=== PATIENT | male | born 1950 | race Asian ===

== ENCOUNTER 2018-02-06 11:33 | Inpatient (IN) | payer OTHER ==
[~2018-02-06] VITALS: Ht 167.6 cm; Wt 75.3 kg
[2018-02-06] MEDS ORDERED: GLIPIZIDE-METF1 EAC2 PO (11:40)
[2018-02-06] MEDS ORDERED: OMEPRAZOLE40 M1 ORAL (11:40)
[2018-02-06] MEDS ORDERED: Sodium Chloride 500ML 500 ML IV ONE (11:50)
--- NOTE | 2018-02-06 12:01 | Emergency Room Report ---
History of Present Illness General Chief Complaint: General Complaint Source: Patient, Medical Record Present Illness HPI Patient presents with complaints of left leg weakness On further discussion patient reports that approximately 4:00 this morning he was having difficulty moving his toes He reports that at times the anterior part of the leg also feels numb However today was mainly his toes He also has been having more difficulty ambulating And bearing weight on that left leg in general Denies any chest pain or shortness of breath denies any loss of control of bowel or urination Allergies: Coded Allergies: No Known Allergies (Unverified , 02/06/18) Patient History Past Medical History: see triage record Pertinent Family History: none Reviewed Nursing Documentation: PMH: Agreed; PSxH: Agreed Nursing Documentation-PMH Hx Cardiac Problems: Yes Hx Hypertension: Yes Hx Diabetes: Yes Review of Systems All Other Systems: negative except mentioned in HPI Physical Exam Vital Signs Date Time Temp Pulse Resp B/P (MAP) Pulse Ox O2 Delivery O2 Flow Rate FiO2 02/06/18 11:18 98.0 66 16 141/85 98 Room Air 98.1 Sp02 EP Interpretation: reviewed, normal General Appearance: well appearing, no apparent distress Head: normocephalic, atraumatic Eyes: bilateral eye PERRL, bilateral eye EOMI ENT: hearing grossly normal, normal pharynx, TMs + canals normal, uvula midline Neck: full range of motion, supple, no meningismus, no bony tend Respiratory: lungs clear, normal breath sounds, no rhonchi, no respiratory distress, no retraction, no accessory muscle use Cardiovascular #1: normal peripheral pulses, regular rate, rhythm, no edema, no gallop, no JVD, no murmur Gastrointestinal: normal bowel sounds, non tender, soft, no mass, no organomegaly, non-distended, no guarding, no hernia, no pulsatile mass, no rebound Genitourinary: no CVA tenderness Musculoskeletal: other - Patient was able to lift the leg up on the left side and flex at the pelvic and knee area, sensory is intact patient has some difficulty extending the left foot along with the toes however is able to flex the toes, Neurologic: oriented x3, responsive, sensory intact Psychiatric: mood/affect normal Skin: normal color, no rash, warm/dry, palpation normal Lymphatic: normal inspection, no adenopathy Medical Decision Making Diagnostic Impression: Primary Impression: Elevated troponin Additional Impression: Weakness ER Course Patient is a fairly complex patient with multiple differential to consideration including but not limited to cardiac cardiopulmonary , intracranial and vascular emergencies Patient's blood work reveals mildly elevated troponin CT head and L-spine did not show any obvious acute pathology Patient will be admitted for further inpatient care Patient does not meet thrombolytic criteria Labs Test 02/08/18 07:30 02/08/18 14:45 Troponin I 0.101 ng/mL (0.000-0.056) 0.096 ng/mL (0.000-0.056) EKG Diagnostic Results Rate: normal Rhythm: NSR ST Segments: no acute changes Rhythm Strip Diag. Results EP Interpretation: yes Rate: 77 Rhythm: NSR, no PVC's, no ectopy Chest X-Ray Diagnostic Results Chest X-Ray Diagnostic Results : Chest X-Ray Ordered: Yes # of Views/Limited/Complete: 1 View Indication: Chest Pain EP Interpretation: Yes Interpretation: no consolidation, no effusion, no pneumothorax Impression: No acute disease Electronically Signed by: Timi Nieves DO CT/MRI/US Diagnostic Results CT/MRI/US Diagnostic Results : Impression CT L-spineIMPRESSION: No evidence of acute fracture or traumatic malalignment. Chronic-appearing bilateral pars defects at L5-S1. No associated spondylolisthesis. Overall mild degenerative change of the lumbar spine as above. CT head IMPRESSION: No evidence of acute intracranial hemorrhage, mass effect or cortical edema. MRI may be obtained for more sensitive evaluation as clinically indicated. Chronic appearing infarcts in the right thalamus and left cerebellar hemisphere. Atrophy and nonspecific periventricular hypoattenuation suggestive of chronic ischemic microvascular changes. Last Vital Signs Date Time Temp Pulse Resp B/P (MAP) Pulse Ox O2 Delivery O2 Flow Rate FiO2 02/06/18 11:18 98.0 66 16 141/85 98 Room Air 98.1 Status: improved Disposition: ADMITTED INPATIENT Condition: Serious Timi Nieves DO Feb 06, 2018 12:01
[2018-02-06 12:30] LABS: BASOPHILS % (AUTO) 0.5 % (0.0-2.0); EOSINOPHILS % (AUTO) 1.6 % (0.0-3.0); HEMATOCRIT 42.2 % (42.0-52.0); HEMOGLOBIN 15.5 G/DL (14.2-18.0); LYMPHOCYTES % (AUTO) 21.7 % (20.0-45.0); MEAN CORPUSCULAR VOLUME 91 FL (80-99); NEUTROPHILS % (AUTO) 68.3 % (45.0-75.0); PLATELET COUNT 185 K/UL (150-450); RED BLOOD COUNT 4.63 M/UL (4.70-6.10); RED CELL DISTRIBUTION WIDTH 11.6 % (11.6-14.8); WHITE BLOOD COUNT 7.1 K/UL (4.8-10.8)
--- NOTE | 2018-02-06 12:32 | Diagnostic Imaging Report ---
Indication: Chest pain Technique: XRAY Chest 1v Comparison: None Findings: Low lung volumes exaggerate heart size and vascular markings. There is bronchovascular crowding at the bases. There is no definite focal airspace consolidation, pleural effusion or pneumothorax. No acute osseous abnormality is seen. Impression: Limited exam with low lung volumes. No definite focal airspace consolidation, pleural effusion or pneumothorax. Question borderline cardiomegaly.
[2018-02-06 12:47] LABS: ANION GAP 11 mmol/L (5-15); BLOOD UREA NITROGEN 19 mg/dL (7-18); CALCIUM 8.9 MG/DL (8.5-10.1); CARBON DIOXIDE 23 MMOL/L (21-32); CHLORIDE 104 MMOL/L (98-107); CREATININE 0.8 MG/DL (0.55-1.30); POTASSIUM 3.9 MMOL/L (3.5-5.1); SODIUM 138 MMOL/L (136-145)
[2018-02-06 13:01] LABS: ALANINE AMINOTRANSFERASE 42 U/L (12-78); ALBUMIN 3.4 G/DL (3.4-5.0); ALKALINE PHOSPHATASE 58 U/L (46-116); ASPARTATE AMINO TRANSFERASE 25 U/L (15-37); BILIRUBIN,TOTAL 0.7 MG/DL (0.2-1.0); CKMB 1.3 NG/ML (0.0-3.6); CREATINE KINASE 63 U/L (26-308)
--- NOTE | 2018-02-06 13:16 | Diagnostic Imaging Report ---
Reason For Exam: WEAK Technique: Continuous helical CT scanning of the head was performed utilizing automated exposure control without intravenous contrast material. Axial and coronal reconstructions were obtained. Comparison: None CT dose: Total DLP 1333.51 mGycm; CTDI vol 70.38 mGy Findings: There is no acute intracranial hemorrhage, mass effect or cortical edema. There is a chronic lacunar infarct in the right thalamus. There is also a chronic appearing infarct in the left cerebellum. The ventricles, cisterns and sulci are prominent consistent with atrophy. Periventricular hypoattenuation is seen, a nonspecific finding most likely related to sequela of chronic microvascular ischemic change. There are atherosclerotic vascular calcifications. Visualized vascular structures are symmetric in density. Visualized mastoid air cells and paranasal sinuses are unremarkable. No focal lesions of the bony calvarium or soft tissues of the scalp are seen. IMPRESSION: No evidence of acute intracranial hemorrhage, mass effect or cortical edema. MRI may be obtained for more sensitive evaluation as clinically indicated. Chronic appearing infarcts in the right thalamus and left cerebellar hemisphere. Atrophy and nonspecific periventricular hypoattenuation suggestive of chronic ischemic microvascular changes. The CT scanner at [facility] is accredited by the [employer] and the scans are performed using protocols designed to limit radiation exposure to as low as reasonably achievable to attain images of sufficient resolution adequate for diagnostic evaluation.
--- NOTE | 2018-02-06 13:25 | Diagnostic Imaging Report ---
Reason For Exam: WEAK Technique: CT lumbar spine was performed utilizing automated exposure control without intravenous contrast material. Axial, sagittal and coronal images were generated. CT dose: Total DLP 502.72 mGycm; CTDI vol 15.73 mGy Comparison: None Findings: There is minimal dextroscoliosis of the mid lumbar spine. There are 5 nonrib-bearing lumbar-type vertebral bodies, assuming 12 paired ribs. There is no acute fracture. Vertebral body heights are within normal limits; there is no compression fracture. There are chronic bilateral pars defects at L5-S1. There is no associated spondylolisthesis. There is overall mild level degenerative change of the spine manifested by loss of disc height, anterior osteophyte formation and mild facet arthropathy. Findings are most pronounced at L5-S1, where there is vacuum disc phenomenon. There is no significant bony central canal stenosis or bony foraminal narrowing. There is mild disc disease with small multilevel disc bulges. No appreciable significant foraminal narrowing. Please note that the cord, disks and nerve roots are not well evaluated on CT. Evaluation of these structures is best performed on MRI, which can be obtained as clinically indicated. Visualized abdominal aorta and iliac arteries appear normal in caliber with atherosclerotic calcifications. IMPRESSION: No evidence of acute fracture or traumatic malalignment. Chronic-appearing bilateral pars defects at L5-S1. No associated spondylolisthesis. Overall mild degenerative change of the lumbar spine as above. The CT scanner at [facility] is accredited by the [employer] and the scans are performed using protocols designed to limit radiation exposure to as low as reasonably achievable to attain images of sufficient resolution adequate for diagnostic evaluation.
[2018-02-06] MEDS ORDERED: Nitroglycerin Subl 0.4mg tab SL PRN (14:30)
[2018-02-06] MEDS ORDERED: Enalaprilat 2.5mg/2ml Inj IV PRN (14:30)
[2018-02-06] MEDS ORDERED: Morphine Sulfate 4mg/ml Inj IVP PRN (14:30)
[2018-02-06] MEDS ORDERED: Miralax 17gm pkt ORAL PRN (14:30)
[2018-02-06] MEDS ORDERED: Albuterol/Ipratropium 3ml neb HHN PRN (14:30)
[2018-02-06] MEDS ORDERED: dilTIAZem HCl 25mg/5ml Inj IV PRN (14:30)
[2018-02-06] MEDS ORDERED: Ketorolac 30mg Inj IV PRN (14:30)
--- NOTE | 2018-02-06 15:18 | History and Physical ---
History of Present Illness General Date patient seen: Feb 06, 2018 Reason for Hospitalization: General Complaint Present Illness HPI 67 year old male with hx of DM, presented to ER with complaints of left leg weakness and difficulty moving his toes He also has been having more difficulty ambulating. Denies any chest pain or shortness of breath denies any loss of control of bowel or urination. Pt's troponin was positive. He is admitted to telemetry to rule out ACS. Allergies: Coded Allergies: No Known Allergies (Unverified , 02/06/18) Medication History Scheduled Glipizide/Metformin Hcl (Glipizide-Metformin 5-500 Mg), 1 EACH PO BID, (Reported ) Omeprazole (Omeprazole), 40 MG ORAL DAILY, (Reported) Patient History Healthcare decision maker Resuscitation status Advanced Directive on File Past Medical/Surgical History Past Medical/Surgical History: (1) Diabetes mellitus Review of Systems Neurological: Reports: focal weakness All Other Systems: negative except mentioned in HPI Physical Exam General Appearance: WD/WN Lines, tubes and drains: peripheral HEENT: normocephalic, atraumatic Neck: non-tender, normal alignment Respiratory/Chest: chest wall non-tender, lungs clear Breasts: no masses Cardiovascular/Chest: normal peripheral pulses Abdomen: normal bowel sounds Genitourinary/Rectal: normal genital exam Last 24 Hour Vital Signs Date Time Temp Pulse Resp B/P (MAP) Pulse Ox O2 Delivery O2 Flow Rate FiO2 02/06/18 11:18 98.0 66 16 141/85 98 Room Air 98.1 Laboratory Tests Test 02/06/18 00:10 White Blood Count 7.1 K/UL (4.8-10.8) Red Blood Count 4.63 M/UL (4.70-6.10) L Hemoglobin 15.5 G/DL (14.2-18.0) Hematocrit 42.2 % (42.0-52.0) Mean Corpuscular Volume 91 FL (80-99) Mean Corpuscular Hemoglobin 33.5 PG (27.0-31.0) H Mean Corpuscular Hemoglobin Concent 36.8 G/DL (32.0-36.0) H Red Cell Distribution Width 11.6 % (11.6-14.8) Platelet Count 185 K/UL (150-450) Mean Platelet Volume 6.8 FL (6.5-10.1) Neutrophils (%) (Auto) 68.3 % (45.0-75.0) Lymphocytes (%) (Auto) 21.7 % (20.0-45.0) Monocytes (%) (Auto) 8.0 % (1.0-10.0) Eosinophils (%) (Auto) 1.6 % (0.0-3.0) Basophils (%) (Auto) 0.5 % (0.0-2.0) Sodium Level 138 MMOL/L (136-145) Potassium Level 3.9 MMOL/L (3.5-5.1) Chloride Level 104 MMOL/L (98-107) Carbon Dioxide Level 23 MMOL/L (21-32) Anion Gap 11 mmol/L (5-15) Blood Urea Nitrogen 19 mg/dL (7-18) H Creatinine 0.8 MG/DL (0.55-1.30) Estimat Glomerular Filtration Rate > 60 mL/min (>60) Glucose Level 246 MG/DL (74-106) H Calcium Level 8.9 MG/DL (8.5-10.1) Total Bilirubin 0.7 MG/DL (0.2-1.0) Aspartate Amino Transf (AST/SGOT) 25 U/L (15-37) Alanine Aminotransferase (ALT/SGPT) 42 U/L (12-78) Alkaline Phosphatase 58 U/L (46-116) Total Creatine Kinase 63 U/L (26-308) Creatine Kinase MB 1.3 NG/ML (0.0-3.6) Creatine Kinase MB Relative Index 2.0 Troponin I 0.098 ng/mL (0.000-0.056) Total Protein 6.8 G/DL (6.4-8.2) Albumin 3.4 G/DL (3.4-5.0) Globulin 3.4 g/dL Albumin/Globulin Ratio 1.0 (1.0-2.7) Height (Feet): 5 Height (Inches): 6.00 Weight (Pounds): 166 Medications Current Medications Medications (Trade) Dose Ordered Sig/[place] Route PRN Reason Start Time Stop Time Status Last Admin Dose Admin Acetaminophen (Tylenol) 650 mg Q4H PRN ORAL FEVER 02/06/18 14:30 03/08/18 14:29 UNV Albuterol/ Ipratropium (Albuterol/ Ipratropium) 3 ml EVERY 4 HOURS PRN HHN Shortness of Breath 02/06/18 14:30 02/11/18 14:29 UNV Aspirin (ASA) 162 mg DAILY ORAL 02/07/18 09:00 03/09/18 08:59 UNV Dextrose (Dextrose 50%) STAT PRN IV Hypoglycemia 02/06/18 14:30 03/08/18 14:29 UNV Diltiazem HCl (Cardizem) 10 mg EVERY HOUR PRN IV heart rate more than 120, 02/06/18 14:30 03/08/18 14:29 UNV Enalaprilat (Vasotec) 2.5 mg EVERY 6 HOURS PRN IV sbp more than 160 02/06/18 14:30 03/08/18 14:29 UNV Heparin Sodium (Porcine) (Heparin 5000 units/ml) 5,000 units EVERY 8 HOURS SUBQ 02/06/18 22:00 03/08/18 21:59 UNV Insulin Aspart (NovoLOG) BEFORE MEALS AND HS SUBQ 02/06/18 16:30 03/08/18 16:29 UNV Ketorolac Tromethamine (Toradol 30mg) 30 mg Q6HR PRN IV moderate pain ( 4-6) 02/06/18 14:30 02/11/18 14:29 UNV Morphine Sulfate (Morphine Sulfate) 2 mg EVERY 4 HOURS PRN IVP severe Pain (Pain Scale 7-10) 02/06/18 14:30 02/13/18 14:29 UNV Nitroglycerin (Ntg) 0.4 mg Every 5 Minutes PRN SL Prn Chest Pain 02/06/18 14:30 03/08/18 14:29 UNV Ondansetron HCl (Zofran) 4 mg Q6H PRN IVP Nausea & Vomiting 02/06/18 14:30 03/08/18 14:29 UNV Pantoprazole (Protonix) 40 mg DAILY ORAL 02/07/18 09:00 03/09/18 08:59 UNV Polyethylene Glycol (Miralax) 17 gm DAILYPRN PRN ORAL Constipation 02/06/18 14:30 03/08/18 14:29 UNV Temazepam (Restoril) 15 mg HSPRN PRN ORAL Insomnia 02/06/18 14:30 02/13/18 14:29 UNV Assessment/Plan Problem List: (1) ACS (acute coronary syndrome) ICD Codes: I24.9 - Acute ischemic heart disease, unspecified SNOMED: 712002490 (2) Weakness ICD Codes: R53.1 - Weakness SNOMED: 08259262, 085190648, 346332369 (3) Elevated troponin ICD Codes: R74.8 - Abnormal levels of other serum enzymes SNOMED: 457509699, 531029871, 016805259 (4) Diabetes mellitus ICD Codes: E11.9 - Type 2 diabetes mellitus without complications SNOMED: 35331865 Assessment/Plan serial ekg, troponin, echo cardiology evaluation sliding scale, diabetic diet pt/ot MRI of brain, Neuro evaluation. Sean Loera MD Feb 06, 2018 15:18
[2018-02-06] MEDS: NovoLOG Insulin Flexpen SUBQ SCH ×2 (18:05→20:36)
[2018-02-06 18:13] VITALS: BP 137/76
--- NOTE | 2018-02-06 19:26 | Cardiology Progress Note ---
Assessment/Plan Assessment/Plan need neuro drummond statin ecotirn carotid his torp does not reach ami will repeat trop adn ekg adn echo stress test neg 05/2017 at his pmd office [id number] Objective Last 24 Hour Vital Signs Date Time Temp Pulse Resp B/P (MAP) Pulse Ox O2 Delivery O2 Flow Rate FiO2 02/06/18 18:15 98.0 16 137/76 98 Room Air 98.0 02/06/18 18:13 98.0 16 137/76 98 Room Air 98.0 02/06/18 17:41 76 02/06/18 17:01 98.0 02/06/18 16:31 98.0 02/06/18 11:18 98.0 66 16 141/85 98 Room Air 98.1 Laboratory Tests Test 02/06/18 00:10 White Blood Count 7.1 K/UL (4.8-10.8) Red Blood Count 4.63 M/UL (4.70-6.10) L Hemoglobin 15.5 G/DL (14.2-18.0) Hematocrit 42.2 % (42.0-52.0) Mean Corpuscular Volume 91 FL (80-99) Mean Corpuscular Hemoglobin 33.5 PG (27.0-31.0) H Mean Corpuscular Hemoglobin Concent 36.8 G/DL (32.0-36.0) H Red Cell Distribution Width 11.6 % (11.6-14.8) Platelet Count 185 K/UL (150-450) Mean Platelet Volume 6.8 FL (6.5-10.1) Neutrophils (%) (Auto) 68.3 % (45.0-75.0) Lymphocytes (%) (Auto) 21.7 % (20.0-45.0) Monocytes (%) (Auto) 8.0 % (1.0-10.0) Eosinophils (%) (Auto) 1.6 % (0.0-3.0) Basophils (%) (Auto) 0.5 % (0.0-2.0) Sodium Level 138 MMOL/L (136-145) Potassium Level 3.9 MMOL/L (3.5-5.1) Chloride Level 104 MMOL/L (98-107) Carbon Dioxide Level 23 MMOL/L (21-32) Anion Gap 11 mmol/L (5-15) Blood Urea Nitrogen 19 mg/dL (7-18) H Creatinine 0.8 MG/DL (0.55-1.30) Estimat Glomerular Filtration Rate > 60 mL/min (>60) Glucose Level 246 MG/DL (74-106) H Calcium Level 8.9 MG/DL (8.5-10.1) Total Bilirubin 0.7 MG/DL (0.2-1.0) Aspartate Amino Transf (AST/SGOT) 25 U/L (15-37) Alanine Aminotransferase (ALT/SGPT) 42 U/L (12-78) Alkaline Phosphatase 58 U/L (46-116) Total Creatine Kinase 63 U/L (26-308) Creatine Kinase MB 1.3 NG/ML (0.0-3.6) Creatine Kinase MB Relative Index 2.0 Troponin I 0.098 ng/mL (0.000-0.056) Total Protein 6.8 G/DL (6.4-8.2) Albumin 3.4 G/DL (3.4-5.0) Globulin 3.4 g/dL Albumin/Globulin Ratio 1.0 (1.0-2.7) ROSEMARIE AGUILAR Feb 06, 2018 19:26
[2018-02-06 20:00] VITALS: BP 137/81
[2018-02-06] MEDS: Atorvastatin 20mg tab ORAL SCH (20:34)
[2018-02-06] MEDS: Heparin 5000 units/ml inj SUBQ SCH (22:01)
[2018-02-07] VITALS: BP 114/66
--- NOTE | 2018-02-07 02:45 | Consultation ---
DATE OF CONSULTATION: 02/06/2018 CARDIOLOGY CONSULTATION CONSULTING PHYSICIAN: Sean Shoemaker M.D. REFERRING PHYSICIAN: Sean Loera M.D. REASON FOR CONSULTATION: Abnormal cardiac enzymes. HISTORY OF PRESENT ILLNESS: This is a middle-aged Occitan gentleman who speaks some Polish. Information was obtained from my discussion with the patient himself as well as discussions with the patient's daughter as well as review of the chart. He was noted to have some pain initially in his left leg. He went to sleep and then he woke up, he thought he was unable to move his left foot anymore and he called his daughter and told her that he has been having problems with moving his left leg or foot, not clear. He has had this episode previously and he massaged the foot and he apparently got it to work, at this time it did not work. He went to his primary care doctor and because of the recent CT scan that had shown some stroke, the patient's primary care physician directed him into the emergency room here at [facility] and has been admitted to the hospital. Part of the workup has indicated his cardiac enzymes were abnormal, therefore, this consultation requested. The patient absolutely denies any pain, pressure, tightness, heaviness, uses three pillows to sleep with. Does not have any shortness of breath on ambulation. No dizziness or lightheadedness usually. PAST MEDICAL HISTORY: Included some extensive notes that was referred by his physician. He recently has had some elevated PSA for which he has been treated with antibiotics and was given referral to Urology. He has had a nuclear stress test that was apparently normal in May 2007 with ejection fraction of 60%. Cardiac echo also showed concentric ventricular hypertrophy with mild diastolic dysfunction, mildly dilated ascending aorta with ejection fraction 60% to 65%. 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 MRCP was unremarkable. 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 He also had a CT scan, which showed two lacunar infarctions in the medial right thalamus and inferior left cerebellar hemisphere. A carotid ultrasound on 01/26/2018 with stenosis. He also has diabetes mellitus and diabetic polyneuropathy in bilateral hands, left worse than the right, gastroesophageal reflux disease, aortic ectasia, renal cyst, hearing loss, abdominal surgery in July 2017. He also had an endoscopy as well as MRCP. MEDICATIONS: At home include metformin, Farxiga and insulin, acyclovir, Flonase, glipizide, and omeprazole as needed. ALLERGIES: None. SOCIAL HISTORY: Sedentary. 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 He has smoked up to three years ago. He socially drinks alcoholic beverages. REVIEW OF SYSTEMS: GASTROINTESTINAL: He denies any nausea, vomiting, diarrhea, or constipation. GENITOURINARY: He denies problems urinating. PULMONARY: Denies any coughing or wheezing. CONSTITUTIONAL: No fevers or chills. NEUROLOGIC: As mentioned in the history of present illness. PHYSICAL EXAMINATION: GENERAL: Shows to be an elderly gentleman, in no respiratory distress. HEENT: Unremarkable. NECK: Supple. No jugular venous distention. CARDIAC: Regular rate and rhythm. No heaves, thrills, or gallops noted. ABDOMEN: Soft and nontender. Positive bowel sounds. EXTREMITIES: He is able to move his upper extremities up and down without any problems. The left lower extremity appears to be somewhat weaker trying to lift off the bed, but he is able to do that anyway, but it is weaker than it is on the right side. There is no clubbing, cyanosis, nor is there any edema. NEUROLOGIC: As mentioned. LABORATORY AND DIAGNOSTIC DATA: White count 7.1, hemoglobin 15.5, and platelet count of 185. Sodium is 138, potassium 3.9, chloride 104, bicarbonate 23, BUN of 19, creatinine 0.8, glucose of 246. Troponin 0.098. Total protein of 6.8 and albumin of 3.4. A chest x-ray was performed in the emergency room shows low lung volumes, limited examination. No definite airspace consolidation, pleural effusion, or pneumothorax. His CT scan of his head had shown no evidence of acute intracranial hemorrhage or mass effect; chronic appearing infarct in the right thalamus and left cerebellar. Atrophy was noted. Spinal CT had shown no evidence of acute fracture or alignment, chronic appearing bilateral L5-S1. No spondylolisthesis was noted. Telemetry shows sinus rhythm. He has had an electrocardiogram that was performed in the emergency room, shows normal sinus rhythm, leftward axis, really no significant ST-T wave abnormalities. His cardiac enzymes had shown troponin as mentioned of 0.098. ASSESSMENT AND PLAN: 1. Abnormal cardiac enzymes without signs and symptoms of coronary disease. 2. Left lower extremity weakness. 3. Diabetes mellitus. 4. History of hypertension. 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 6. Abnormal CT with a history of chronic cerebrovascular accidents on prior CT scan prior to admission. Dr. Loera, this patient was seen in cardiac consultation. The patient reportedly had a recent nuclear perfusion imaging approximately 8 months ago that was negative with normal ejection fraction. His cardiac enzyme abnormality of minimal degree is uncertain etiology. He has not had any chest pain. Since the level of his cardiac enzymes are below the threshold suggestive of acute myocardial infarction; therefore, I will just repeat the EKG in the morning and cardiac enzymes and an echocardiogram to make sure that there was no segmental wall motion abnormality. He has already had a negative stress test recently. He will need neurological workup and evaluation. He should be on statins in light of the fact that he has diabetes. I do not see statin as part of his regimen prior to admission and he should probably be on some aspirin as well. No contraindications have been noted. His A1c in October 2017 reported at 5.8 and in January 2018 was 11.7 suggestive of poor compliance with medications. The patient will be followed. Sean Shoemaker M.D. : [employer]oo JOB#: [id number] CC:
[2018-02-07 04:00] VITALS: BP 119/61
[2018-02-07] MEDS: Heparin 5000 units/ml inj SUBQ SCH ×3 (05:32→20:55)
[2018-02-07] MEDS: NovoLOG Insulin Flexpen SUBQ SCH ×4 (06:07→20:37)
[2018-02-07 08:00] VITALS: BP 121/70
[2018-02-07 08:56] LABS: BASOPHILS % (AUTO) 0.7 % (0.0-2.0); HEMATOCRIT 45.3 % (42.0-52.0); HEMOGLOBIN 16.5 G/DL (14.2-18.0); LYMPHOCYTES % (AUTO) 26.9 % (20.0-45.0); MEAN CORPUSCULAR VOLUME 91 FL (80-99); MONOCYTES % (AUTO) 8.1 % (1.0-10.0); NEUTROPHILS % (AUTO) 61.2 % (45.0-75.0); PLATELET COUNT 203 K/UL (150-450); RED BLOOD COUNT 4.97 M/UL (4.70-6.10); RED CELL DISTRIBUTION WIDTH 11.2 % (11.6-14.8)
[2018-02-07] MEDS: Aspirin Baby 81mg ORAL SCH (09:09)
[2018-02-07 09:38] LABS: CHOLESTEROL 169 MG/DL (< 200); HDL CHOLESTEROL 47 MG/DL (40-60); TRIGLYCERIDES 117 MG/DL (30-150)
--- NOTE | 2018-02-07 12:06 | Pulmonology Progress Note ---
Assessment/Plan Problems: (1) ACS (acute coronary syndrome) (2) Weakness (3) Elevated troponin (4) Diabetes mellitus (5) Hx of abdominal surgery Assessment/Plan cariology appreciated, very helpful note pt/ot MRI of brain Neuro evaluation pending sliding scale Subjective ROS Limited/Unobtainable: No Constitutional: Reports: no symptoms HEENT: Repors: no symptoms Respiratory: Reports: no symptoms Cardiovascular: Reports: no symptoms Allergies: Coded Allergies: No Known Allergies (Unverified , 02/06/18) Objective Last 24 Hour Vital Signs Date Time Temp Pulse Resp B/P (MAP) Pulse Ox O2 Delivery O2 Flow Rate FiO2 02/07/18 08:00 77 02/07/18 08:00 97.7 69 19 121/70 96 Room Air 97.7 02/07/18 04:00 57 02/07/18 04:00 97.7 57 19 119/61 93 Room Air 97.7 02/07/18 00:00 60 02/07/18 00:00 97.6 60 18 114/66 94 Room Air 97.6 02/06/18 20:00 97.9 72 20 137/81 96 Room Air 97.9 02/06/18 20:00 72 02/06/18 18:15 98.0 16 137/76 98 Room Air 98.0 02/06/18 18:13 98.0 16 137/76 98 Room Air 98.0 02/06/18 17:41 76 02/06/18 17:01 98.0 02/06/18 16:31 98.0 Intake and Output 02/06/18 02/07/18 19:00 07:00 Intake Total 0 ml Balance 0 ml Intake Oral 0 ml # Voids 2 General Appearance: WD/WN HEENT: normocephalic, atraumatic Respiratory/Chest: chest wall non-tender, lungs clear Cardiovascular: normal peripheral pulses, normal rate, regular rhythm Abdomen: normal bowel sounds, soft, non tender Genitourinary: normal external genitalia Extremities: no cyanosis Skin: no rash, no lesions 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 Lymphatic: no neck adenopathy Laboratory Tests 02/07/18 07:50: White Blood Count 6.0, Red Blood Count 4.97, Hemoglobin 16.5, Hematocrit 45.3, Mean Corpuscular Volume 91, Mean Corpuscular Hemoglobin 33.2H, Mean Corpuscular Hemoglobin Concent 36.5H, Red Cell Distribution Width 11.2L, Platelet Count 203 , Mean Platelet Volume 7.0, Neutrophils (%) (Auto) 61.2, Lymphocytes (%) (Auto) 26.9, Monocytes (%) (Auto) 8.1, Eosinophils (%) (Auto) 3.0, Basophils (%) (Auto ) 0.7, Prothrombin Time 10.1, Prothromb Time International Ratio 1.0, Activated Partial Thromboplast Time 27, Troponin I 0.103H, C-Reactive Protein, Quantitative < 0.4, Triglycerides Level 117, Cholesterol Level 169, LDL Cholesterol 111H, HDL Cholesterol 47, Cholesterol/HDL Ratio 3.6, Thyroid Stimulating Hormone (TSH) 1.069 Current Medications Medications (Trade) Dose Ordered Sig/Namrata Route PRN Reason Start Time Stop Time Status Last Admin Dose Admin Acetaminophen (Tylenol) 650 mg Q4H PRN ORAL FEVER (temp>100.5F) 02/06/18 14:30 03/08/18 14:29 Albuterol/ Ipratropium (Albuterol/ Ipratropium) 3 ml Q4H PRN HHN Shortness of Breath 02/06/18 14:30 02/11/18 14:29 Aspirin (ASA) 81 mg DAILY ORAL 02/07/18 09:00 03/09/18 08:59 02/07/18 09:09 Atorvastatin Calcium (Lipitor) 40 mg BEDTIME ORAL 02/06/18 21:00 03/08/18 20:59 02/06/18 20:34 Dextrose (Dextrose 50%) 25 ml STAT PRN IV Hypoglycemia 02/06/18 14:30 03/08/18 14:29 Dextrose (Dextrose 50%) 50 ml STAT PRN IV Hypoglycemia 02/06/18 15:30 03/08/18 15:29 Diltiazem HCl (Cardizem) 10 mg Q1H PRN IV heart rate more than 120, 02/06/18 14:30 03/08/18 14:29 Enalaprilat (Vasotec) 2.5 mg Q6H PRN IV sbp more than 160 02/06/18 14:30 03/08/18 14:29 Heparin Sodium (Porcine) (Heparin 5000 units/ml) 5,000 units EVERY 8 HOURS SUBQ 02/06/18 22:00 03/08/18 21:59 02/07/18 05:32 Insulin Aspart (NovoLOG) BEFORE MEALS AND HS SUBQ 02/06/18 17:30 03/08/18 17:29 02/07/18 11:46 Ketorolac Tromethamine (Toradol 30mg) 30 mg Q6H PRN IV moderate pain (4-6) 02/06/18 14:30 02/11/18 14:29 Morphine Sulfate (Morphine Sulfate) 2 mg Q4H PRN IVP severe Pain (Pain Scale 7-10) 02/06/18 14:30 02/13/18 14:29 02/06/18 16:31 Nitroglycerin (Ntg) 0.4 mg Q5M PRN SL Prn Chest Pain 02/06/18 14:30 03/08/18 14:29 Ondansetron HCl (Zofran) 4 mg Q6H PRN IVP Nausea & Vomiting 02/06/18 14:30 03/08/18 14:29 Pantoprazole (Protonix) 40 mg DAILY ORAL 02/07/18 09:00 03/09/18 08:59 02/07/18 09:09 Polyethylene Glycol (Miralax) 17 gm DAILYPRN PRN ORAL Constipation 02/06/18 14:30 03/08/18 14:29 Temazepam (Restoril) 15 mg HSPRN PRN ORAL Insomnia 02/06/18 14:30 02/13/18 14:29 Sean Loera MD February 07, 2018 12:06
[2018-02-07 12:11] VITALS: BP 122/73
--- NOTE | 2018-02-07 13:46 | Cardiology Progress Note ---
Assessment/Plan Assessment/Plan 1. Abnormal cardiac enzymes without signs and symptoms of coronary syndrome of ? sig . 2. Left lower extremity weakness. 3. Diabetes mellitus. 4. History of hypertension. 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 6. Abnormal CT with a history of chronic cerebrovascular accidents on prior CT scan prior to admission recent nuclear perfusion imaging approximately 8 months ago that was negative with normal ejection fraction. cardiac enzyme abnormality of minimal degree is uncertain etiology. the level of his cardiac enzymes are below the threshold suggestive of acute myocardial infarction echo reviewed wall motion is normal trop will be repeated ekg to day no st t wave abn he seem to be ok but still has weakness in his foot tele neg cxr noted neuro drummond on ecotrin and lipitor Subjective Cardiovascular: Denies: chest pain, irregular heart rate, lightheadedness, palpitations Respiratory: Denies: orthopnea Gastrointestinal/Abdominal: Denies: abdominal pain Genitourinary: Denies: burning Subjective still with foot weakness Objective Last 24 Hour Vital Signs Date Time Temp Pulse Resp B/P (MAP) Pulse Ox O2 Delivery O2 Flow Rate FiO2 02/07/18 12:11 97.8 63 19 122/73 96 Room Air 97.8 02/07/18 08:00 77 02/07/18 08:00 97.7 69 19 121/70 96 Room Air 97.7 02/07/18 04:00 57 02/07/18 04:00 97.7 57 19 119/61 93 Room Air 97.7 02/07/18 00:00 60 02/07/18 00:00 97.6 60 18 114/66 94 Room Air 97.6 02/06/18 20:00 97.9 72 20 137/81 96 Room Air 97.9 02/06/18 20:00 72 02/06/18 18:15 98.0 16 137/76 98 Room Air 98.0 02/06/18 18:13 98.0 16 137/76 98 Room Air 98.0 02/06/18 17:41 76 02/06/18 17:01 98.0 02/06/18 16:31 98.0 General Appearance: no apparent distress, alert Neck: supple Cardiovascular: normal rate, regular rhythm Respiratory/Chest: lungs clear Abdomen: normal bowel sounds, non tender, soft Extremities: no swelling Intake and Output 02/06/18 02/07/18 19:00 07:00 Intake Total 0 ml Balance 0 ml Intake Oral 0 ml # Voids 2 Laboratory Tests Test 02/07/18 07:50 White Blood Count 6.0 K/UL (4.8-10.8) Red Blood Count 4.97 M/UL (4.70-6.10) Hemoglobin 16.5 G/DL (14.2-18.0) Hematocrit 45.3 % (42.0-52.0) Mean Corpuscular Volume 91 FL (80-99) Mean Corpuscular Hemoglobin 33.2 PG (27.0-31.0) H Mean Corpuscular Hemoglobin Concent 36.5 G/DL (32.0-36.0) H Red Cell Distribution Width 11.2 % (11.6-14.8) L Platelet Count 203 K/UL (150-450) Mean Platelet Volume 7.0 FL (6.5-10.1) Neutrophils (%) (Auto) 61.2 % (45.0-75.0) Lymphocytes (%) (Auto) 26.9 % (20.0-45.0) Monocytes (%) (Auto) 8.1 % (1.0-10.0) Eosinophils (%) (Auto) 3.0 % (0.0-3.0) Basophils (%) (Auto) 0.7 % (0.0-2.0) Prothrombin Time 10.1 SEC (9.30-11.50) Prothromb Time International Ratio 1.0 (0.9-1.1) Activated Partial Thromboplast Time 27 SEC (23-33) Troponin I 0.103 ng/mL (0.000-0.056) C-Reactive Protein, Quantitative < 0.4 mg/dL (0.00-0.90) Triglycerides Level 117 MG/DL (30-150) Cholesterol Level 169 MG/DL (< 200) LDL Cholesterol 111 mg/dL (<100) H HDL Cholesterol 47 MG/DL (40-60) Cholesterol/HDL Ratio 3.6 (3.3-4.4) Thyroid Stimulating Hormone (TSH) 1.069 uiU/mL (0.358-3.740) ROSEMARIE AGUILAR February 07, 2018 13:46
--- NOTE | 2018-02-07 13:51 | Cardiology Report ---
APPROVED REPORT EXAM: Two-dimensional and M-mode echocardiogram with Doppler and color Doppler. INDICATION Congestive Heart Failure M-Mode DIMENSIONS IVSd1.6 (0.7-1.1cm)Left Atrium (MM)4.0 (1.6-4.0cm) LVDd4.4 (3.5-5.6cm)Aortic Root3.5 (2.0-3.7cm) PWd1.7 (0.7-1.1cm)Aortic Cusp Exc.1.9 (1.5-2.0cm) IVSs1.7 cm LVDs3.0 (2.5-4.0cm) PWs2.0 cm Normal left ventricular chamber size, systolic function and wall motion . Left ventricular ejection fraction estimated to be 55- 60%. Mild left ventricular hypertrophy by 2-D. No evidence of pericardial effusion. All other cardiac chamber sizes are within normal limits. Focal aortic valve sclerosis with adequate cusp excursion. Mildly Thickened mitral valve leaflets with normal excursion. Mildly Mitral annulus and aortic root calcification. Normal pulmonic valve structure. Normal tricuspid valve structure. IVC at normal size with physiologic collapse. A color flow and spectral Doppler study was performed and revealed: Mild aortic regurgitation. Mild mitral regurgitation. Mitral diastolic velocities suggest reduced left ventricular relaxation c/w mild LV diastolic dysfunction (Grade I ) Mild tricuspid regurgitation. Tricuspid systolic velocities suggests peak right ventricular systolic pressure of 29mmHg.
--- NOTE | 2018-02-07 14:50 | Diagnostic Imaging Report ---
Indication: 67-year-old male with altered mental status and left-sided weakness Technique: The head was imaged in a 1.5 Lauren magnet. Sequences obtained include sagittal and axial T1 FLAIR, axial T2 fast spin echo with fat saturation, axial T2 FLAIR, diffusion and ADC map. Comparison: None There is a small focus of diffusion restriction demonstrated within a gyrus just right of midline near the vertex of the skull in the frontal lobe. Findings consistent with acute CVA. No associated edema or mass effect demonstrated. There is no midline shift. There is no evidence of hemorrhage. No magnetic susceptibility artifact demonstrated. There is generalized mild prominence of the basal cisterns, ventricles and cerebral sulci as well as cerebellar fissures spin with atrophy. Tiny cystic focus noted within the left cerebellum and right thalamus consistent with old lacunar infarcts. Mild periventricular T2 hyperintense signal noted consistent chronic small vessel disease. Corpus callosum, sella, osseous bone marrow signal appear normal. IMPRESSION: Acute CVA involving the high right frontal lobe near the vertex. Infarct a small. No associated edema or mass effect or hemorrhage. Generalized atrophy of the brain and evidence of chronic small vessel ischemia. Old lacunar infarcts in the left cerebellum and right thalamus. Critical value communication. Findings were discussed via telephone with Drs. Loera @2: 40pm, 02/07/2018
[2018-02-07 16:02] VITALS: BP 131/84
--- NOTE | 2018-02-07 16:55 | Cardiology Report ---
APPROVED REPORT EKG Measurement Heart [id number] CT [id number] Normal sinus rhythm with sinus arrhythmia Left axis deviation Abnormal ECG
--- NOTE | 2018-02-07 19:37 | Consultation ---
Consult Note Consult Note NEUROLOGY CONSULTATION: Full note dictated #[id number] 67 y/o, RH, KM with PH of HTN, DM, GERD, leg cramps and prior CVD. He was hospitalized on 02/06/2018 for the sudden onset of left LE weakness. ON EXAM: Problems with memory. HCF G 5-/5 in left FE G 4+/5 in left IP G 2/5 in left ankle DF and TE. Brisker DTRs on left Left paretic gait. IMPRESSION: High right frontal stroke - acute. Old right thalamic and left cerebellar strokes. Hypertensive/diabetic dyslipidemic CVD. REC: PT/OT Consider changing antiplatelet agent to Plavix. BP/BS/Lipid control. Kaden Ratliff M.D., M.S.P.Payam. KADEN RATLIFF February 07, 2018 19:37
[2018-02-07 20:00] VITALS: BP 125/71
--- NOTE | 2018-02-07 20:30 | Consultation ---
DATE OF CONSULTATION: 02/07/2018 NEUROLOGY CONSULTATION CONSULTING PHYSICIAN: Abran Ratliff M.D. REFERRING PHYSICIAN: Sean Loera M.D. HISTORY: Mr. Noe Peterson is a 67-year-old, right-handed, [place] gentleman, who does have a past history of hypertension, diabetes mellitus, gastroesophageal reflux disease, leg cramps, and cerebrovascular disease seen on a prior CT scan. He was functioning relatively well until the early hours of 02/06/2018, when on awakening, he noticed that his left lower extremity was not moving in a normal fashion. As a result of that, he was brought into the [facility] Emergency Room and has since been admitted. This consultation was requested to evaluate and manage the patient's cerebrovascular disease. At this point in time, the patient continues to have weakness in his left leg. He denies any weakness in his left upper extremity. He also denies any problems with memory, speech, language, or other neurological symptoms. He denies any prior similar symptoms. He, however, is quite worried by leg cramps, which have been bothering him for quite some time. PAST MEDICAL HISTORY: Significant for hypertension, diabetes mellitus, gastroesophageal reflux disease, leg cramps, and prior cerebral vascular disease as evidenced by abnormal CT scan, the exact details of which are unknown to us. FAMILY HISTORY: Significant for high blood pressure and diabetes in other family members. PERSONAL HISTORY: Home: He lives alone. 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 Habits: He denies the use of illicit drugs. He does have 1-2 beers in a week. He used to smoke in the past, but stopped smoking approximately three years ago. PRESENT MEDICATIONS: Include aspirin 81 mg daily, pantoprazole, heparin for DVT prophylaxis, Lipitor, insulin, DuoNeb inhaler, nitroglycerin p.r.n., Tylenol p.r.n., Toradol p.r.n., morphine p.r.n., MiraLAX p.r.n., Zofran p.r.n., temazepam p.r.n., Norvasc, Vasotec p.r.n., and Cardizem p.r.n. PHYSICAL EXAMINATION: GENERAL: He is a well-developed and well-nourished, pleasant, [place] gentleman, lying in bed, in no acute distress. VITAL SIGNS: Pulse 65 per minute, blood pressure 131/84 mmHg, respirations 18 per minute, and temperature 97.8 degrees Fahrenheit. HEAD: Normocephalic and atraumatic. EENT: Examination benign. NECK: No neck rigidity was observed. NEUROLOGIC EXAMINATION: MENTAL STATUS EXAMINATION: He was awake and alert. He was oriented to person, place, and time. He was able to recall 3/3 words immediately after 1 minute and after 3 minutes. He was unable to tell me who the present President was, but was able to remember that Obama was president prior to that. With hints, he was also able to remember Rudd Aashish, but could not remember presidents prior to that. His mathematical skills were minimally impaired. His visuospatial function was preserved. SPEECH: He had no dysarthria. LANGUAGE: He had no aphasia in Wol[place] as per the [place] hydroelectric machinery mechanic helper. CRANIAL NERVE EXAMINATION: II: The visual coleman were intact to confrontation testing. III, IV & : The external ocular movements were full and the pupils 3 mm in diameter, equal, round, regular, and reactive to light. V: He had normal facial sensations, and the temporales, masseters, and pterygoids functioned normally. VII: He had normal facial expressions and no facial asymmetry. VIII: He was able to hear well bilaterally and he had no nystagmus. IX: The palate moved symmetrically on phonation. X: He had no hoarseness of voice. XI: The sternocleidomastoids and trapezii functioned normally. XII: The tongue was in the midline without any fasciculations or atrophy. MOTOR SYSTEM: The tone was normal in all four extremities. Examination of muscle mass revealed no focal wasting. Examination of power revealed G 5/5 power except for G 5-/5 power in the left finger extensors, G 4+/5 power in the left iliopsoas, and G 2/5 power in the left ankle dorsiflexors and toe extensors. SENSORY EXAMINATION: He had intact sensations to pinprick, light touch, and graphesthesia. COORDINATION: He performed well on [id number] testing. He was unable to perform [id number] testing. REFLEXES: 1+ on the right and 3+ on the left at the biceps, triceps, brachioradialis, and knees and 0 on the right and left at the ankles. The plantar response was flexor on the right and extensor on the left. STANCE: He stood up with support. GAIT: He walks with support with a left hemiparetic gait. DIAGNOSTIC IMPRESSION: 1. Mr. Noe Peterson is a 67-year-old, right-handed, [place] gentleman, who does have a past history of hypertension, diabetes mellitus, gastroesophageal reflux disease, leg cramps, and prior cerebrovascular disease on imaging, who on 02/06/2018, had a sudden onset of left lower extremity weakness. 2. On neurological examination at this time, he does have mild problems with memory and higher cognitive function. He also has a left hemiparesis involving the lower extremity significantly more than the upper extremity. In addition, the deep tendon reflexes are brisker on the left side than on the right and he does have an extensor plantar response on the left side. He also walks with a left hemiparetic gait. 3. Laboratory data obtained thus far have revealed a relatively normal CBC. Chemistry panel with blood sugar of 246 and a BUN elevated to 19. Lipid panel with an LDL of 111 and HDL of 47. Normal TSH, and normal PT and INR. 4. The MRI scan of the brain reveals a high right frontal acute infarct and in addition, old right thalamic and left cerebellar infarcts. 5. The patient's history, neurological examination, and imaging studies are most compatible with an acute high right frontal infarct causing a left hemiparesis involving the lower extremity significantly more than the upper extremity. His imaging studies also revealed old cerebrovascular disease indicative of recurrent strokes. The most likely etiology for his strokes is hypertensive, diabetic, dyslipidemic, cerebrovascular disease. RECOMMENDATIONS: 1. Agree with management thus far. 2. The patient will benefit significantly from a course of physical and occupational therapy. 3. It may be worth changing the patient's antiplatelet agent from aspirin to Plavix to give him added stroke prevention benefits. 4. The patient's blood pressure should be well controlled at all times that is equal to or less than 120/80 mmHg. 5. His blood sugar should be kept under good control with his hemoglobin A1c goal being at 6%. 6. His lipids should also be well controlled with an LDL goal of <70. 7. The patient will be observed closely and depending on how he fares over the next day or so, further recommendations will be given. Thank you for entrusting me with the care of Mr. Peterson. I shall follow him with you. Abran Ratliff M.D., M.S.P.H. DR: HEATHER JOB#: [id number] MARY JANE
[2018-02-07] MEDS: Atorvastatin 20mg tab ORAL SCH (20:37)
[2018-02-07] MEDS ORDERED: NovoLOG Insulin Flexpen SUBQ SCH (21:00)
--- NOTE | 2018-02-07 22:12 | Consultation ---
History of Present Illness General Date patient seen: February 07, 2018 Chief Complaint: General Complaint Present Illness HPI 67-year-old [place] gentleman, who does have a past history of hypertension, diabetes mellitus, gastroesophageal reflux disease, leg cramps, and prior cerebrovascular disease seen on a prior CT scan. the pt pw inability to move his lower ext. the pt is anxious however no si/hi Allergies: Coded Allergies: No Known Allergies (Unverified , 02/06/18) Medication History Scheduled Glipizide/Metformin Hcl (Glipizide-Metformin 5-500 Mg), 1 EACH PO BID, (Reported ) Omeprazole (Omeprazole), 40 MG ORAL DAILY, (Reported) Patient History Limited by: medical condition History Provided By: Patient, Medical Record, PMD Healthcare decision maker Resuscitation status Full Code Advanced Directive on File Past Medical/Surgical History Past Medical/Surgical History: (1) Weakness (2) Elevated troponin (3) Diabetes mellitus (4) ACS (acute coronary syndrome) Review of Systems Psychiatric: Reports: prior hx, anxiety, emotional problems Physical Exam General Appearance: WD/WN, no apparent distress, alert Neurologic: oriented x 3, responsive, depressed affect Last 24 Hour Vital Signs Date Time Temp Pulse Resp B/P (MAP) Pulse Ox O2 Delivery O2 Flow Rate FiO2 02/07/18 20:00 63 02/07/18 20:00 98.0 60 20 125/71 97 Room Air 98.0 02/07/18 16:02 97.8 65 18 131/84 96 Room Air 97.8 02/07/18 16:00 61 02/07/18 12:11 97.8 63 19 122/73 96 Room Air 97.8 02/07/18 12:00 61 02/07/18 08:00 77 02/07/18 08:00 97.7 69 19 121/70 96 Room Air 97.7 02/07/18 04:00 57 02/07/18 04:00 97.7 57 19 119/61 93 Room Air 97.7 02/07/18 00:00 60 02/07/18 00:00 97.6 60 18 114/66 94 Room Air 97.6 Intake and Output 02/06/18 02/07/18 19:00 07:00 Intake Total 0 ml Balance 0 ml Intake Oral 0 ml # Voids 2 Laboratory Tests Test 02/07/18 07:50 02/07/18 16:10 White Blood Count 6.0 K/UL (4.8-10.8) Red Blood Count 4.97 M/UL (4.70-6.10) Hemoglobin 16.5 G/DL (14.2-18.0) Hematocrit 45.3 % (42.0-52.0) Mean Corpuscular Volume 91 FL (80-99) Mean Corpuscular Hemoglobin 33.2 PG (27.0-31.0) H Mean Corpuscular Hemoglobin Concent 36.5 G/DL (32.0-36.0) H Red Cell Distribution Width 11.2 % (11.6-14.8) L Platelet Count 203 K/UL (150-450) Mean Platelet Volume 7.0 FL (6.5-10.1) Neutrophils (%) (Auto) 61.2 % (45.0-75.0) Lymphocytes (%) (Auto) 26.9 % (20.0-45.0) Monocytes (%) (Auto) 8.1 % (1.0-10.0) Eosinophils (%) (Auto) 3.0 % (0.0-3.0) Basophils (%) (Auto) 0.7 % (0.0-2.0) Prothrombin Time 10.1 SEC (9.30-11.50) Prothromb Time International Ratio 1.0 (0.9-1.1) Activated Partial Thromboplast Time 27 SEC (23-33) Troponin I 0.103 ng/mL (0.000-0.056) 0.093 ng/mL (0.000-0.056) C-Reactive Protein, Quantitative < 0.4 mg/dL (0.00-0.90) Triglycerides Level 117 MG/DL (30-150) Cholesterol Level 169 MG/DL (< 200) LDL Cholesterol 111 mg/dL (<100) H HDL Cholesterol 47 MG/DL (40-60) Cholesterol/HDL Ratio 3.6 (3.3-4.4) Thyroid Stimulating Hormone (TSH) 1.069 uiU/mL (0.358-3.740) Erythrocyte Sedimentation Rate 3 MM/HR (0-20) Hemoglobin A1c 10.3 % (4.3-6.0) H Vitamin B12 Level 326 PG/ML (193-986) Vitamin D 25-Hydroxy Pending 25-Hydroxy Vitamin D2 Pending 25-Hydroxy Vitamin D3 Pending Folate 10.7 NG/ML (8.6-58.9) Rapid Plasma Reagin Pending Height (Feet): 5 Height (Inches): 6.00 Weight (Pounds): 166 Medications Current Medications Medications (Trade) Dose Ordered Sig/Namrata Route PRN Reason Start Time Stop Time Status Last Admin Dose Admin Acetaminophen (Tylenol) 650 mg Q4H PRN ORAL FEVER (temp>100.5F) 02/06/18 14:30 03/08/18 14:29 Albuterol/ Ipratropium (Albuterol/ Ipratropium) 3 ml Q4H PRN HHN Shortness of Breath 02/06/18 14:30 02/11/18 14:29 Aspirin (ASA) 81 mg DAILY ORAL 02/07/18 09:00 03/09/18 08:59 02/07/18 09:09 Atorvastatin Calcium (Lipitor) 40 mg BEDTIME ORAL 02/06/18 21:00 03/08/18 20:59 02/07/18 20:37 Clopidogrel Bisulfate (Plavix) 75 mg DAILY ORAL 02/07/18 20:20 03/09/18 20:19 02/07/18 20:54 Dextrose (Dextrose 50%) 25 ml STAT PRN IV Hypoglycemia 02/06/18 14:30 03/08/18 14:29 Dextrose (Dextrose 50%) 50 ml STAT PRN IV Hypoglycemia 02/06/18 15:30 03/08/18 15:29 Diltiazem HCl (Cardizem) 10 mg Q1H PRN IV heart rate more than 120, 02/06/18 14:30 03/08/18 14:29 Enalaprilat (Vasotec) 2.5 mg Q6H PRN IV sbp more than 160 02/06/18 14:30 03/08/18 14:29 Heparin Sodium (Porcine) (Heparin 5000 units/ml) 5,000 units EVERY 8 HOURS SUBQ 02/06/18 22:00 03/08/18 21:59 02/07/18 20:55 Insulin Aspart (NovoLOG) BEFORE MEALS AND HS SUBQ 02/06/18 17:30 03/08/18 17:29 02/07/18 20:37 Ketorolac Tromethamine (Toradol 30mg) 30 mg Q6H PRN IV moderate pain (4-6) 02/06/18 14:30 02/11/18 14:29 Morphine Sulfate (Morphine Sulfate) 2 mg Q4H PRN IVP severe Pain (Pain Scale 7-10) 02/06/18 14:30 02/13/18 14:29 02/06/18 16:31 Nitroglycerin (Ntg) 0.4 mg Q5M PRN SL Prn Chest Pain 02/06/18 14:30 03/08/18 14:29 Ondansetron HCl (Zofran) 4 mg Q6H PRN IVP Nausea & Vomiting 02/06/18 14:30 03/08/18 14:29 Pantoprazole (Protonix) 40 mg DAILY ORAL 02/07/18 09:00 03/09/18 08:59 02/07/18 09:09 Polyethylene Glycol (Miralax) 17 gm DAILYPRN PRN ORAL Constipation 02/06/18 14:30 03/08/18 14:29 Temazepam (Restoril) 15 mg HSPRN PRN ORAL Insomnia 02/06/18 14:30 02/13/18 14:29 Assessment/Plan Status: stable, progressing Assessment/Plan Anxiety d/o -ativan prn -provided gallito/Luis E Kelly M.D. February 07, 2018 22:12
[2018-02-08] VITALS: BP 128/73
[2018-02-08 04:00] VITALS: BP 131/80
[2018-02-08] MEDS: Heparin 5000 units/ml inj SUBQ SCH ×3 (06:01→21:11)
[2018-02-08] MEDS: NovoLOG Insulin Flexpen SUBQ SCH ×4 (06:02→21:07)
[2018-02-08 08:13] VITALS: BP 121/69
[2018-02-08] MEDS: Aspirin Baby 81mg ORAL SCH (08:22)
[2018-02-08] MEDS: metFORMIN 500mg tab ORAL SCH ×2 (11:51→17:05)
[2018-02-08 12:00] VITALS: BP 114/67
--- NOTE | 2018-02-08 12:00 | Consultation ---
DATE OF CONSULTATION: 02/08/2018 ENDOCRINOLOGY CONSULTATION CONSULTING PHYSICIAN: Fredi Coffey M.D. REFERRING PHYSICIAN: Sean Loera M.D. REASON FOR CONSULTATION: Diabetes management. HISTORY OF PRESENT ILLNESS: The patient is a 67-year-old male with past medical history of diabetes, hypertension, and prior CVA who was admitted to the [facility] where he presented with left lower extremity weakness. This started around 02/06/2018. His hemoglobin A1c is 10.3. As an outpatient, his diabetes is managed by the glipizide and metformin regimen and he is not usually checking glucose values as an outpatient. PAST MEDICAL HISTORY: 1. Hypertension. 2. Diabetes. 3. GERD. 4. Leg cramps. 5. Prior CVA. MEDICATIONS: As an outpatient, glipizide and metformin for diabetes. For the rest, refer to medication reconciliation form. For his current medications, we have to refer with [facility]. I reviewed and reconciled. SOCIAL HISTORY: The patient lives alone. He used to smoke, quit 3 years ago. Drinks 2 beers a week. FAMILY HISTORY: Blood pressure and diabetes in other family members. PHYSICAL EXAMINATION: GENERAL: The patient is awake. VITAL SIGNS: Blood pressure is 130/80, pulse of 80, temperature of 98 degrees, respiratory rate of 18. HEENT: Pupils are equal and reactive to light and accommodation. Sclerae anicteric NECK: No JVD. No thyromegaly. LUNGS: Clear. HEART: Regular rate and rhythm. ABDOMEN: Positive bowel sounds. Soft. EXTREMITIES: No clubbing, cyanosis, or edema. LABORATORY VALUES: Sodium 138, potassium 3.9, chloride 104, bicarbonate 23, BUN 19, creatinine 0.9, glucose 246. A1c of 10.3. TSH normal 1.0. DIAGNOSES: 1. Left lower extremity weakness 2. History of prior cerebrovascular accident. 3. Diabetes, out of control. A1c of 10.3 as an outpatient. 4. Hypertension. PLAN: 1. Start metformin 500 mg t.i.d. 2. Start Starlix 120 mg before meals t.i.d. 3. NovoLog sliding scale before meals and at bedtime has been ordered. 4. Further adjustment of diabetes regimen according to the blood glucose values. Thank you, Dr. Loera, for the courtesy of this consultation. Fredi Coffey M.D. DR: Asad JOB#: [id number] CC: MARY JANE
--- NOTE | 2018-02-08 12:05 | Pulmonology Progress Note ---
Assessment/Plan Problems: (1) ACS (acute coronary syndrome) (2) Weakness (3) Elevated troponin (4) Diabetes mellitus (5) Hx of abdominal surgery (6) Acute CVA (cerebrovascular accident) Assessment/Plan cariology appreciated, very helpful note pt/ot MRI of brain reviewed, Neuro evaluation appreciated sliding scale Subjective ROS Limited/Unobtainable: No Constitutional: Reports: no symptoms HEENT: Repors: no symptoms Respiratory: Reports: no symptoms Allergies: Coded Allergies: No Known Allergies (Unverified , 02/06/18) Objective Last 24 Hour Vital Signs Date Time Temp Pulse Resp B/P (MAP) Pulse Ox O2 Delivery O2 Flow Rate FiO2 02/08/18 08:13 97.0 63 20 121/69 96 Room Air 97.0 02/08/18 08:00 68 02/08/18 04:00 98.0 66 18 131/80 97 Room Air 98.0 02/08/18 04:00 63 02/08/18 00:00 58 02/08/18 00:00 97.6 62 19 128/73 96 Room Air 97.6 02/07/18 20:00 63 02/07/18 20:00 98.0 60 20 125/71 97 Room Air 98.0 02/07/18 16:02 97.8 65 18 131/84 96 Room Air 97.8 02/07/18 16:00 61 02/07/18 12:11 97.8 63 19 122/73 96 Room Air 97.8 Intake and Output 02/07/18 02/08/18 19:00 07:00 Intake Total 750 ml Balance 750 ml Intake Oral 750 ml # Voids 3 3 General Appearance: WD/WN HEENT: normocephalic, atraumatic Respiratory/Chest: chest wall non-tender, lungs clear Cardiovascular: normal peripheral pulses, normal rate Abdomen: normal bowel sounds, soft, non tender Genitourinary: normal external genitalia Extremities: no cyanosis Skin: no rash, no lesions Neurologic/Psychiatric: 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 grossly normal Lymphatic: no neck adenopathy Laboratory Tests 02/07/18 16:10: Erythrocyte Sedimentation Rate 3, Hemoglobin A1c 10.3H, Troponin I 0.093H, Vitamin B12 Level 326, Vitamin D 25-Hydroxy [Pending], 25-Hydroxy Vitamin D2 [ Pending], 25-Hydroxy Vitamin D3 [Pending], Folate 10.7, Rapid Plasma Reagin Non reactive 02/08/18 07:30: Troponin I 0.101H Current Medications Medications (Trade) Dose Ordered Sig/Namrata Route PRN Reason Start Time Stop Time Status Last Admin Dose Admin Acetaminophen (Tylenol) 650 mg Q4H PRN ORAL FEVER (temp>100.5F) 02/06/18 14:30 03/08/18 14:29 Albuterol/ Ipratropium (Albuterol/ Ipratropium) 3 ml Q4H PRN HHN Shortness of Breath 02/06/18 14:30 02/11/18 14:29 Aspirin (ASA) 81 mg DAILY ORAL 02/07/18 09:00 03/09/18 08:59 02/08/18 08:22 Atorvastatin Calcium (Lipitor) 40 mg BEDTIME ORAL 02/06/18 21:00 03/08/18 20:59 02/07/18 20:37 Clopidogrel Bisulfate (Plavix) 75 mg DAILY ORAL 02/07/18 20:20 03/09/18 20:19 02/08/18 08:22 Dextrose (Dextrose 50%) 25 ml STAT PRN IV Hypoglycemia 02/06/18 14:30 03/08/18 14:29 Dextrose (Dextrose 50%) 50 ml STAT PRN IV Hypoglycemia 02/06/18 15:30 03/08/18 15:29 Diltiazem HCl (Cardizem) 10 mg Q1H PRN IV heart rate more than 120, 02/06/18 14:30 03/08/18 14:29 Enalaprilat (Vasotec) 2.5 mg Q6H PRN IV sbp more than 160 02/06/18 14:30 03/08/18 14:29 Heparin Sodium (Porcine) (Heparin 5000 units/ml) 5,000 units EVERY 8 HOURS SUBQ 02/06/18 22:00 03/08/18 21:59 02/08/18 06:01 Insulin Aspart (NovoLOG) BEFORE MEALS AND HS SUBQ 02/06/18 17:30 03/08/18 17:29 02/08/18 11:53 Ketorolac Tromethamine (Toradol 30mg) 30 mg Q6H PRN IV moderate pain (4-6) 02/06/18 14:30 02/11/18 14:29 Metformin HCl (Glucophage) 500 mg TIAC ORAL 02/08/18 11:30 03/10/18 11:29 02/08/18 11:51 Morphine Sulfate (Morphine Sulfate) 2 mg Q4H PRN IVP severe Pain (Pain Scale 7-10) 02/06/18 14:30 02/13/18 14:29 02/06/18 16:31 Nateglinide (Starlix) 120 mg TIAC ORAL 02/08/18 11:30 03/10/18 11:29 02/08/18 11:51 Nitroglycerin (Ntg) 0.4 mg Q5M PRN SL Prn Chest Pain 02/06/18 14:30 03/08/18 14:29 Ondansetron HCl (Zofran) 4 mg Q6H PRN IVP Nausea & Vomiting 02/06/18 14:30 03/08/18 14:29 Pantoprazole (Protonix) 40 mg DAILY ORAL 02/07/18 09:00 03/09/18 08:59 02/08/18 08:22 Polyethylene Glycol (Miralax) 17 gm DAILYPRN PRN ORAL Constipation 02/06/18 14:30 03/08/18 14:29 Temazepam (Restoril) 15 mg HSPRN PRN ORAL Insomnia 02/06/18 14:30 02/13/18 14:29 Sean Loera MD February 08, 2018 12:05
--- NOTE | 2018-02-08 12:29 | General Progress Note ---
Subjective Date patient seen: February 08, 2018 Neurologic/Psychiatric: Reports: anxiety, emotional problems Allergies: Coded Allergies: No Known Allergies (Unverified , 02/06/18) Subjective the pt is doing better today Objective Last 24 Hour Vital Signs Date Time Temp Pulse Resp B/P (MAP) Pulse Ox O2 Delivery O2 Flow Rate FiO2 02/08/18 08:13 97.0 63 20 121/69 96 Room Air 97.0 02/08/18 08:00 68 02/08/18 04:00 98.0 66 18 131/80 97 Room Air 98.0 02/08/18 04:00 63 02/08/18 00:00 58 02/08/18 00:00 97.6 62 19 128/73 96 Room Air 97.6 02/07/18 20:00 63 02/07/18 20:00 98.0 60 20 125/71 97 Room Air 98.0 02/07/18 16:02 97.8 65 18 131/84 96 Room Air 97.8 02/07/18 16:00 61 Intake and Output 02/07/18 02/08/18 19:00 07:00 Intake Total 750 ml Balance 750 ml Intake Oral 750 ml # Voids 3 3 Laboratory Tests 02/07/18 16:10: Erythrocyte Sedimentation Rate 3, Hemoglobin A1c 10.3H, Troponin I 0.093H, Vitamin B12 Level 326, Vitamin D 25-Hydroxy [Pending], 25-Hydroxy Vitamin D2 [ Pending], 25-Hydroxy Vitamin D3 [Pending], Folate 10.7, Rapid Plasma Reagin Non reactive 02/08/18 07:30: Troponin I 0.101H Height (Feet): 5 Height (Inches): 6.00 Weight (Pounds): 166 General Appearance: WD/WN, no apparent distress, alert Neurologic: oriented x 3, responsive, depressed affect Luis E Carmona M.D. February 08, 2018 12:28
--- NOTE | 2018-02-08 15:42 | Cardiology Report ---
APPROVED REPORT EKG Measurement Heart [id number] Normal sinus rhythm Left axis deviation Possible Anterior infarct, age undetermined Abnormal ECG
[2018-02-08 16:00] VITALS: BP 125/77
--- NOTE | 2018-02-08 18:51 | Cardiology Progress Note ---
Assessment/Plan Assessment/Plan 1. Abnormal cardiac enzymes without signs and symptoms of coronary syndrome of ? sig . 2. Left lower extremity weakness. 3. Diabetes mellitus. 4. History of hypertension. 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 6. Abnormal CT with a history of chronic cerebrovascular accidents on prior CT scan prior to admission recent nuclear perfusion imaging approximately 8 months ago that was negative with normal ejection fraction. 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) ld 111 prior to start of lipitor will see if dr mcnulty feel ecotrin to plavix if nto on asa pt Subjective Cardiovascular: Denies: chest pain, lightheadedness, palpitations Respiratory: Denies: shortness of breath Gastrointestinal/Abdominal: Denies: abdominal pain Subjective better Objective Last 24 Hour Vital Signs Date Time Temp Pulse Resp B/P (MAP) Pulse Ox O2 Delivery O2 Flow Rate FiO2 02/08/18 16:00 97.6 69 19 125/77 95 Room Air 97.6 02/08/18 16:00 71 02/08/18 12:00 97.2 67 20 114/67 94 Room Air 97.2 02/08/18 12:00 72 02/08/18 08:13 97.0 63 20 121/69 96 Room Air 97.0 02/08/18 08:00 68 02/08/18 04:00 98.0 66 18 131/80 97 Room Air 98.0 02/08/18 04:00 63 02/08/18 00:00 58 02/08/18 00:00 97.6 62 19 128/73 96 Room Air 97.6 02/07/18 20:00 63 02/07/18 20:00 98.0 60 20 125/71 97 Room Air 98.0 General Appearance: no apparent distress Neck: supple Cardiovascular: normal rate, regular rhythm Respiratory/Chest: lungs clear Abdomen: non tender, soft Extremities: non-tender Intake and Output 02/07/18 02/08/18 19:00 07:00 Intake Total 750 ml Balance 750 ml Intake Oral 750 ml # Voids 3 3 Laboratory Tests Test 02/08/18 07:30 02/08/18 14:45 Troponin I 0.101 ng/mL (0.000-0.056) 0.096 ng/mL (0.000-0.056) ROSEMARIE AGUILAR February 08, 2018 18:51
[2018-02-08 20:00] VITALS: BP 120/72
--- NOTE | 2018-02-08 20:34 | Neurology Progress Note ---
Interim History Interim History Interim History Mr. Peterson feels better. The left leg is stronger. He has not noted weakness elsewhere. He denies any new neurologic symptoms. Review of Systems Neuro Review of Systems Benign. Objective Physical Exam Last Vital Signs Date Time Temp Pulse Resp B/P (MAP) Pulse Ox O2 Delivery O2 Flow Rate FiO2 02/08/18 16:00 97.6 69 19 125/77 95 Room Air 97.6 Laboratory Tests Test 02/08/18 07:30 02/08/18 14:45 Troponin I 0.101 ng/mL (0.000-0.056) 0.096 ng/mL (0.000-0.056) Neurologic Exam Objective PHYSICAL EXAMINATION: GENERAL: He is a well-developed and well-nourished, pleasant, [place] gentleman , lying in bed, in no acute distress. HEAD: Normocephalic and atraumatic. EENT: Examination benign. NECK: No neck rigidity was observed. NEUROLOGIC EXAMINATION: MENTAL STATUS EXAMINATION: He was awake and alert. He was oriented to person, place, and time. He was able to recall 3/3 words immediately after 1 minute and after 3 minutes. He was able remember presidents Trump through Rudd Aashish, but could not remember presidents prior to that. His mathematical skills were minimally impaired. His visuospatial function was preserved. SPEECH: He had no dysarthria. LANGUAGE: He had no aphasia. CRANIAL NERVE EXAMINATION: II: The visual coleman were intact to confrontation testing. III, IV & : The external ocular movements were full and the pupils 3 mm in diameter, equal, round, regular, and reactive to light. V: He had normal facial sensations, and the temporales, masseters, and pterygoids functioned normally. VII: He had normal facial expressions and no facial asymmetry. VIII: He was able to hear well bilaterally and he had no nystagmus. IX: The palate moved symmetrically on phonation. X: He had no hoarseness of voice. XI: The sternocleidomastoids and trapezii functioned normally. XII: The tongue was in the midline without any fasciculations or atrophy. MOTOR SYSTEM: The tone was normal in all four extremities. Examination of muscle mass revealed no focal wasting. Examination of power revealed G 5/5 power except for G 5-/5 power in the left finger extensors, and G 2/5 power in the left ankle dorsiflexors and toe extensors. SENSORY EXAMINATION: He had intact sensations to pinprick, light touch, and graphesthesia. COORDINATION: He performed well on [id number] testing. He was unable to perform [id number] testing. REFLEXES: 1+ on the right and 3+ on the left at the biceps, triceps, brachioradialis, and knees and 0 on the right and left at the ankles. The plantar response was flexor on the right and extensor on the left. STANCE: He stood up with support. GAIT: He walks with contact guard with a mildly left paretic gait with a mild foot drop. Impression/Recommendations Diagnostic Impression 1. Mr. Noe Peterson is a 67-year-old, right-handed, [place] gentleman, who does have a past history of hypertension, diabetes mellitus, gastroesophageal reflux disease, leg cramps, and prior cerebrovascular disease on imaging, who on 2017, had a sudden onset of left lower extremity weakness. 2. He feels much better today. The left leg is stronger. He has not noted weakness elsewhere. He denies any new neurologic symptoms. 3. On neurological examination at this time, he does have mild problems with memory and higher cognitive function. He also has a left hemiparesis involving the lower extremity significantly more than the upper extremity - however this is better today. In addition, the deep tendon reflexes are brisker on the left side than on the right and he does have an extensor plantar response on the left side. He also walks with a left hemiparetic gait which is significantly better. 4. Laboratory data obtained thus far have revealed a relatively normal CBC. Chemistry panel with blood sugar of 246 and a BUN elevated to 19. Lipid panel with an LDL of 111 and HDL of 47. Normal TSH, and normal PT and INR. 5. The MRI scan of the brain reveals a high right frontal acute infarct and in addition, old right thalamic and left cerebellar infarcts. 6. The patient's history, neurological examination, and imaging studies are most compatible with an acute high right frontal infarct causing a left hemiparesis involving the lower extremity significantly more than the upper extremity. His imaging studies also revealed old cerebrovascular disease indicative of recurrent strokes. The most likely etiology for his strokes is hypertensive, diabetic, dyslipidemic, cerebrovascular disease. Recommendations 1. Continue present management. 2. Physical and occupational therapy. 3. Plavix 75 mg q day for stroke prophylaxis. Can stop ASA in 4 days. 4. The patient's blood pressure should be well controlled at all times that is equal to or less than 120/80 mmHg. 5. His blood sugar should be kept under good control with his hemoglobin A1c goal being at 6%. 6. His lipids should also be well controlled with an LDL goal of <70. 7. Consider brief course of acute rehabilitation. Kaden Hernández M.D., M.S.P.H. KADEN HERNÁNDEZ February 08, 2018 20:34
[2018-02-08] MEDS: Atorvastatin 20mg tab ORAL SCH (21:03)
[2018-02-09] VITALS: BP 112/63
[2018-02-09 04:00] VITALS: BP 111/63
[2018-02-09] MEDS: metFORMIN 500mg tab ORAL SCH ×3 (06:34→16:27)
[2018-02-09] MEDS: Heparin 5000 units/ml inj SUBQ SCH ×3 (06:35→22:18)
[2018-02-09] MEDS: NovoLOG Insulin Flexpen SUBQ SCH ×4 (06:36→22:19)
--- NOTE | 2018-02-09 07:04 | General Progress Note ---
Assessment/Plan Problem List: (1) Weakness ICD Codes: R53.1 - Weakness SNOMED: 40857638, 412807849, 606883346 (2) Elevated troponin ICD Codes: R74.8 - Abnormal levels of other serum enzymes SNOMED: 670024504, 482220883, 985302625 (3) Diabetes mellitus ICD Codes: E11.9 - Type 2 diabetes mellitus without complications SNOMED: 50259194 (4) ACS (acute coronary syndrome) ICD Codes: I24.9 - Acute ischemic heart disease, unspecified SNOMED: 297650328 (5) Acute CVA (cerebrovascular accident) ICD Codes: I63.9 - Cerebral infarction, unspecified SNOMED: 033617951, 628587735 Assessment/Plan continue Metformin 500 mg tid continue Starlix 120 mg ac tid continue NISS Subjective Allergies: Coded Allergies: No Known Allergies (Unverified , 02/06/18) All Systems: reviewed and negative except above Subjective events noted Objective Last 24 Hour Vital Signs Date Time Temp Pulse Resp B/P (MAP) Pulse Ox O2 Delivery O2 Flow Rate FiO2 02/09/18 04:00 58 02/09/18 04:00 97.6 58 20 111/63 97 Room Air 97.6 02/09/18 00:00 61 02/09/18 00:00 97.9 64 20 112/63 96 Room Air 97.9 02/08/18 20:00 97.2 73 18 120/72 96 Room Air 97.2 02/08/18 20:00 80 02/08/18 16:00 97.6 69 19 125/77 95 Room Air 97.6 02/08/18 16:00 71 02/08/18 12:00 97.2 67 20 114/67 94 Room Air 97.2 02/08/18 12:00 72 02/08/18 08:13 97.0 63 20 121/69 96 Room Air 97.0 02/08/18 08:00 68 Intake and Output 02/08/18 02/09/18 19:00 07:00 Intake Total 550 ml Balance 550 ml Intake Oral 550 ml Laboratory Tests 02/08/18 07:30: Troponin I 0.101H 02/08/18 14:45: Troponin I 0.096H Height (Feet): 5 Height (Inches): 6.00 Weight (Pounds): 166 General Appearance: no apparent distress Neck: normal alignment Cardiovascular: normal rate Respiratory/Chest: lungs clear Abdomen: normal bowel sounds Objective Current Medications Medications (Trade) Dose Ordered Sig/Namrata Route PRN Reason Start Time Stop Time Status Last Admin Dose Admin Acetaminophen (Tylenol) 650 mg Q4H PRN ORAL FEVER (temp>100.5F) 02/06/18 14:30 03/08/18 14:29 Albuterol/ Ipratropium (Albuterol/ Ipratropium) 3 ml Q4H PRN HHN Shortness of Breath 02/06/18 14:30 02/11/18 14:29 Aspirin (ASA) 81 mg DAILY ORAL 02/07/18 09:00 03/09/18 08:59 02/08/18 08:22 Atorvastatin Calcium (Lipitor) 40 mg BEDTIME ORAL 02/06/18 21:00 03/08/18 20:59 02/08/18 21:03 Clopidogrel Bisulfate (Plavix) 75 mg DAILY ORAL 02/07/18 20:20 03/09/18 20:19 02/08/18 08:22 Dextrose (Dextrose 50%) 25 ml STAT PRN IV Hypoglycemia 02/06/18 14:30 03/08/18 14:29 Dextrose (Dextrose 50%) 50 ml STAT PRN IV Hypoglycemia 02/06/18 15:30 03/08/18 15:29 Diltiazem HCl (Cardizem) 10 mg Q1H PRN IV heart rate more than 120, 02/06/18 14:30 03/08/18 14:29 Enalaprilat (Vasotec) 2.5 mg Q6H PRN IV sbp more than 160 02/06/18 14:30 03/08/18 14:29 Heparin Sodium (Porcine) (Heparin 5000 units/ml) 5,000 units EVERY 8 HOURS SUBQ 02/06/18 22:00 03/08/18 21:59 02/09/18 06:35 Insulin Aspart (NovoLOG) BEFORE MEALS AND HS SUBQ 02/06/18 17:30 03/08/18 17:29 02/09/18 06:36 Ketorolac Tromethamine (Toradol 30mg) 30 mg Q6H PRN IV moderate pain (4-6) 02/06/18 14:30 02/11/18 14:29 Metformin HCl (Glucophage) 500 mg TIAC ORAL 02/08/18 11:30 03/10/18 11:29 02/09/18 06:34 Morphine Sulfate (Morphine Sulfate) 2 mg Q4H PRN IVP severe Pain (Pain Scale 7-10) 02/06/18 14:30 02/13/18 14:29 02/06/18 16:31 Nateglinide (Starlix) 120 mg TIAC ORAL 02/08/18 11:30 03/10/18 11:29 02/09/18 06:34 Nitroglycerin (Ntg) 0.4 mg Q5M PRN SL Prn Chest Pain 02/06/18 14:30 03/08/18 14:29 Ondansetron HCl (Zofran) 4 mg Q6H PRN IVP Nausea & Vomiting 02/06/18 14:30 03/08/18 14:29 Pantoprazole (Protonix) 40 mg DAILY ORAL 02/07/18 09:00 03/09/18 08:59 02/08/18 08:22 Polyethylene Glycol (Miralax) 17 gm DAILYPRN PRN ORAL Constipation 02/06/18 14:30 03/08/18 14:29 Temazepam (Restoril) 15 mg HSPRN PRN ORAL Insomnia 02/06/18 14:30 02/13/18 14:29 Item Value Date Time Bedside Blood Glucose 176 mg/dl H 02/09/18 0636 Bedside Blood Glucose 124 mg/dl H 02/08/18 2107 Bedside Blood Glucose 180 mg/dl H 02/08/18 1707 Bedside Blood Glucose 343 mg/dl H 02/08/18 1153 Bedside Blood Glucose 190 mg/dl H 02/08/18 0602 SHIVAM RIDDLE February 09, 2018 07:04
[2018-02-09 08:00] VITALS: BP 101/62
[2018-02-09] MEDS: Aspirin Baby 81mg ORAL SCH (08:08)
--- NOTE | 2018-02-09 11:37 | Pulmonology Progress Note ---
Assessment/Plan Problems: (1) Acute CVA (cerebrovascular accident) (2) ACS (acute coronary syndrome) (3) Weakness (4) Elevated troponin (5) Diabetes mellitus (6) Hx of abdominal surgery Assessment/Plan cariology appreciated, very helpful note pt/ot MRI of brain reviewed, Neuro evaluation appreciated dc planning, to rehab, daughter wants only [facility], otherwise she wants to take him home sliding scale Subjective ROS Limited/Unobtainable: No Interval Events: feeling better Constitutional: Reports: no symptoms HEENT: Repors: no symptoms Respiratory: Reports: no symptoms Cardiovascular: Reports: no symptoms Allergies: Coded Allergies: No Known Allergies (Unverified , 02/06/18) Objective Last 24 Hour Vital Signs Date Time Temp Pulse Resp B/P (MAP) Pulse Ox O2 Delivery O2 Flow Rate FiO2 02/09/18 08:00 97.7 71 19 101/62 98 Room Air 97.7 02/09/18 04:00 58 02/09/18 04:00 97.6 58 20 111/63 97 Room Air 97.6 02/09/18 00:00 61 02/09/18 00:00 97.9 64 20 112/63 96 Room Air 97.9 02/08/18 20:00 97.2 73 18 120/72 96 Room Air 97.2 02/08/18 20:00 80 02/08/18 16:00 97.6 69 19 125/77 95 Room Air 97.6 02/08/18 16:00 71 02/08/18 12:00 97.2 67 20 114/67 94 Room Air 97.2 02/08/18 12:00 72 Intake and Output 02/08/18 02/09/18 19:00 07:00 Intake Total 550 ml Balance 550 ml Intake Oral 550 ml General Appearance: WD/WN HEENT: normocephalic, atraumatic Respiratory/Chest: chest wall non-tender, lungs clear, normal breath sounds Cardiovascular: normal peripheral pulses, normal rate, regular rhythm Abdomen: normal bowel sounds, soft, non tender, no organomegaly Genitourinary: normal external genitalia Extremities: no cyanosis Skin: no rash 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 Lymphatic: no neck adenopathy Laboratory Tests 02/08/18 14:45: Troponin I 0.096H Current Medications Medications (Trade) Dose Ordered Sig/Namrata Route PRN Reason Start Time Stop Time Status Last Admin Dose Admin Acetaminophen (Tylenol) 650 mg Q4H PRN ORAL FEVER (temp>100.5F) 02/06/18 14:30 03/08/18 14:29 Albuterol/ Ipratropium (Albuterol/ Ipratropium) 3 ml Q4H PRN HHN Shortness of Breath 02/06/18 14:30 02/11/18 14:29 Aspirin (ASA) 81 mg DAILY ORAL 02/07/18 09:00 03/09/18 08:59 02/09/18 08:08 Atorvastatin Calcium (Lipitor) 40 mg BEDTIME ORAL 02/06/18 21:00 03/08/18 20:59 02/08/18 21:03 Clopidogrel Bisulfate (Plavix) 75 mg DAILY ORAL 02/07/18 20:20 03/09/18 20:19 02/09/18 08:08 Dextrose (Dextrose 50%) 25 ml STAT PRN IV Hypoglycemia 02/06/18 14:30 03/08/18 14:29 Dextrose (Dextrose 50%) 50 ml STAT PRN IV Hypoglycemia 02/06/18 15:30 03/08/18 15:29 Diltiazem HCl (Cardizem) 10 mg Q1H PRN IV heart rate more than 120, 02/06/18 14:30 03/08/18 14:29 Enalaprilat (Vasotec) 2.5 mg Q6H PRN IV sbp more than 160 02/06/18 14:30 03/08/18 14:29 Heparin Sodium (Porcine) (Heparin 5000 units/ml) 5,000 units EVERY 8 HOURS SUBQ 02/06/18 22:00 03/08/18 21:59 02/09/18 06:35 Insulin Aspart (NovoLOG) BEFORE MEALS AND HS SUBQ 02/06/18 17:30 03/08/18 17:29 02/09/18 11:17 Ketorolac Tromethamine (Toradol 30mg) 30 mg Q6H PRN IV moderate pain (4-6) 02/06/18 14:30 02/11/18 14:29 Metformin HCl (Glucophage) 500 mg TIAC ORAL 02/08/18 11:30 03/10/18 11:29 02/09/18 11:17 Morphine Sulfate (Morphine Sulfate) 2 mg Q4H PRN IVP severe Pain (Pain Scale 7-10) 02/06/18 14:30 02/13/18 14:29 02/06/18 16:31 Nateglinide (Starlix) 120 mg TIAC ORAL 02/08/18 11:30 03/10/18 11:29 02/09/18 11:17 Nitroglycerin (Ntg) 0.4 mg Q5M PRN SL Prn Chest Pain 02/06/18 14:30 03/08/18 14:29 Ondansetron HCl (Zofran) 4 mg Q6H PRN IVP Nausea & Vomiting 02/06/18 14:30 03/08/18 14:29 Pantoprazole (Protonix) 40 mg DAILY ORAL 02/07/18 09:00 03/09/18 08:59 02/09/18 08:09 Polyethylene Glycol (Miralax) 17 gm DAILYPRN PRN ORAL Constipation 02/06/18 14:30 03/08/18 14:29 Temazepam (Restoril) 15 mg HSPRN PRN ORAL Insomnia 02/06/18 14:30 02/13/18 14:29 Sean Loera MD February 09, 2018 11:37
--- NOTE | 2018-02-09 11:46 | General Progress Note ---
Assessment/Plan Status: stable Assessment/Plan anxiety d/o cognitive d/o/dementia -ativan prn -the pt is reluctant to ssri Subjective Date patient seen: February 09, 2018 Neurologic/Psychiatric: Reports: anxiety, depressed Allergies: Coded Allergies: No Known Allergies (Unverified , 02/06/18) Subjective the pts mri consistent with stroke, brain atrophy and mini infarcts. the pt was depressed about the outcome. the pt has cognitive impairment. Objective Last 24 Hour Vital Signs Date Time Temp Pulse Resp B/P (MAP) Pulse Ox O2 Delivery O2 Flow Rate FiO2 02/09/18 08:00 97.7 71 19 101/62 98 Room Air 97.7 02/09/18 04:00 58 02/09/18 04:00 97.6 58 20 111/63 97 Room Air 97.6 02/09/18 00:00 61 02/09/18 00:00 97.9 64 20 112/63 96 Room Air 97.9 02/08/18 20:00 97.2 73 18 120/72 96 Room Air 97.2 02/08/18 20:00 80 02/08/18 16:00 97.6 69 19 125/77 95 Room Air 97.6 02/08/18 16:00 71 02/08/18 12:00 97.2 67 20 114/67 94 Room Air 97.2 02/08/18 12:00 72 Intake and Output 02/08/18 02/09/18 19:00 07:00 Intake Total 550 ml Balance 550 ml Intake Oral 550 ml Laboratory Tests 02/08/18 14:45: Troponin I 0.096H Height (Feet): 5 Height (Inches): 6.00 Weight (Pounds): 166 General Appearance: WD/WN, no apparent distress, alert Neurologic: alert, oriented x 3 Luis E Carmona M.D. February 09, 2018 11:46
[2018-02-09 12:00] VITALS: BP 112/70
[2018-02-09 16:00] VITALS: BP 124/75
--- NOTE | 2018-02-09 16:42 | Neurology Progress Note ---
Interim History Interim History Interim History Mr. Peterson feels better. The left leg is stronger. He has not noted any left hand weakness. He has not noted weakness elsewhere. He denies any new neurologic symptoms. He is able to walk better. He is doing all exercises taught to him by his therapists. Review of Systems Neuro Review of Systems Benign. Objective Physical Exam Last Vital Signs Date Time Temp Pulse Resp B/P (MAP) Pulse Ox O2 Delivery O2 Flow Rate FiO2 02/09/18 12:00 97.2 67 20 112/70 96 Room Air 97.2 Neurologic Exam Objective PHYSICAL EXAMINATION: GENERAL: He is a well-developed and well-nourished, pleasant, Polish gentleman , lying in bed, in no acute distress. HEAD: Normocephalic and atraumatic. EENT: Examination benign. NECK: No neck rigidity was observed. NEUROLOGIC EXAMINATION: MENTAL STATUS EXAMINATION: He was awake and alert. He was oriented to person, place, and time. He was able to recall 3/3 words immediately after 1 minute and after 3 minutes. He was able remember presidents [employer] through [employer]. His mathematical skills were minimally impaired. His visuospatial function was preserved. SPEECH: He had no dysarthria. LANGUAGE: He had no aphasia. CRANIAL NERVE EXAMINATION: II: The visual coleman were intact to confrontation testing. III, IV & : The external ocular movements were full and the pupils 3 mm in diameter, equal, round, regular, and reactive to light. V: He had normal facial sensations, and the temporales, masseters, and pterygoids functioned normally. VII: He had normal facial expressions and no facial asymmetry. VIII: He was able to hear well bilaterally and he had no nystagmus. IX: The palate moved symmetrically on phonation. X: He had no hoarseness of voice. XI: The sternocleidomastoids and trapezii functioned normally. XII: The tongue was in the midline without any fasciculations or atrophy. MOTOR SYSTEM: The tone was normal in all four extremities. Examination of muscle mass revealed no focal wasting. Examination of power revealed G 5/5 power except for G 5-/5 power in the left finger extensors, and G 2/5 power in the left ankle dorsiflexors and toe extensors, and ankle plantar flexors and toe flexors.. SENSORY EXAMINATION: He had intact sensations to pinprick, light touch, and graphesthesia. COORDINATION: He performed well on [id number] testing. He was unable to perform [id number] testing. REFLEXES: 1+ on the right and 3+ on the left at the biceps, triceps, brachioradialis, and knees and 0 on the right and left at the ankles. The plantar response was flexor on the right and extensor on the left. STANCE: He stood up with support. GAIT: He walked with contact guard with a mildly left paretic gait with a mild left foot drop. Impression/Recommendations Diagnostic Impression 1. Mr. Noe Peterson is a 67-year-old, right-handed, Polish gentleman, who does have a past history of hypertension, diabetes mellitus, gastroesophageal reflux disease, leg cramps, and prior cerebrovascular disease on imaging, who on 2017, had a sudden onset of left lower extremity weakness. 2. He continues to feel much better. The left leg is stronger. He has not noted weakness elsewhere. he is walking better. He denies any new neurologic symptoms. 3. On neurological examination, at this time, he does have mild problems with memory and higher cognitive function. He also has a left hemiparesis involving the lower extremity significantly more than the upper extremity - however this continues to improve. In addition, the deep tendon reflexes are brisker on the left side than on the right and he does have an extensor plantar response on the left side. He also walks with a left hemiparetic gait which is significantly better. 4. Laboratory data obtained thus far have revealed a relatively normal CBC. Chemistry panel with blood sugar of 246 and a BUN elevated to 19. Lipid panel with an LDL of 111 and HDL of 47. Normal TSH, and normal PT and INR. 5. The MRI scan of the brain reveals a high right frontal acute infarct and in addition, old right thalamic and left cerebellar infarcts. 6. The patient's history, neurological examination, and imaging studies are most compatible with an acute high right frontal infarct causing a left hemiparesis involving the lower extremity significantly more than the upper extremity. His imaging studies also revealed old cerebrovascular disease indicative of recurrent strokes. The most likely etiology for his strokes is hypertensive, diabetic, dyslipidemic, cerebrovascular disease. Recommendations 1. Continue present management. 2. Physical and occupational therapy. 3. Plavix 75 mg q day for stroke prophylaxis. Can stop ASA in 3 days. 4. The patient's blood pressure should be well controlled at all times that is equal to or less than 120/80 mmHg. 5. His blood sugar should be kept under good control with his hemoglobin A1c goal being at 6%. 6. His lipids should also be well controlled with an LDL goal of <70. 7. Consider brief course of acute rehabilitation. Kaden Hernández M.D., M.S.P.H. KADEN HERNÁNDEZ February 09, 2018 16:42
--- NOTE | 2018-02-09 19:35 | Cardiology Progress Note ---
Assessment/Plan Assessment/Plan 1. Abnormal cardiac enzymes without signs and symptoms of coronary syndrome of ? sig . 2. Left lower extremity weakness. 3. Diabetes mellitus. 4. History of hypertension. 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 6. Abnormal CT with a history of chronic cerebrovascular accidents on prior CT scan prior to admission recent nuclear perfusion imaging approximately 8 months ago that was negative with normal ejection fraction. 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) ld 111 prior to start of lipitor dr mcnulty feels best to switch plavix Subjective Cardiovascular: Denies: chest pain Respiratory: Denies: shortness of breath Gastrointestinal/Abdominal: Denies: abdominal pain Subjective better Objective Last 24 Hour Vital Signs Date Time Temp Pulse Resp B/P (MAP) Pulse Ox O2 Delivery O2 Flow Rate FiO2 02/09/18 16:00 97.3 68 19 124/75 95 Room Air 97.3 02/09/18 16:00 67 02/09/18 12:00 97.2 67 20 112/70 96 Room Air 97.2 02/09/18 12:00 65 02/09/18 08:00 69 02/09/18 08:00 97.7 71 19 101/62 98 Room Air 97.7 02/09/18 04:00 58 02/09/18 04:00 97.6 58 20 111/63 97 Room Air 97.6 02/09/18 00:00 61 02/09/18 00:00 97.9 64 20 112/63 96 Room Air 97.9 02/08/18 20:00 97.2 73 18 120/72 96 Room Air 97.2 02/08/18 20:00 80 General Appearance: no apparent distress, alert Cardiovascular: normal rate Respiratory/Chest: lungs clear Abdomen: normal bowel sounds, non tender, soft Extremities: non-tender Intake and Output 02/08/18 02/09/18 19:00 07:00 Intake Total 550 ml Balance 550 ml Intake Oral 550 ml ROSEMARIE AGUILAR February 09, 2018 19:35
[2018-02-09 20:00] VITALS: BP 98/63
[2018-02-09] MEDS: Atorvastatin 20mg tab ORAL SCH (22:17)
[2018-02-10] VITALS: BP 114/70
[2018-02-10 04:00] VITALS: BP 119/68
[2018-02-10] MEDS: metFORMIN 500mg tab ORAL SCH ×2 (06:56→11:35)
[2018-02-10] MEDS: NovoLOG Insulin Flexpen SUBQ SCH ×2 (07:01→11:32)
[2018-02-10] MEDS: Heparin 5000 units/ml inj SUBQ SCH (07:02)
--- NOTE | 2018-02-10 07:06 | General Progress Note ---
Assessment/Plan Problem List: (1) Weakness ICD Codes: R53.1 - Weakness SNOMED: 72386452, 651898783, 456669448 (2) Elevated troponin ICD Codes: R74.8 - Abnormal levels of other serum enzymes SNOMED: 604615296, 108245552, 012281906 (3) Diabetes mellitus ICD Codes: E11.9 - Type 2 diabetes mellitus without complications SNOMED: 58005726 (4) ACS (acute coronary syndrome) ICD Codes: I24.9 - Acute ischemic heart disease, unspecified SNOMED: 336771381 (5) Acute CVA (cerebrovascular accident) ICD Codes: I63.9 - Cerebral infarction, unspecified SNOMED: 491442275, 865736668 Assessment/Plan continue Metformin 500 mg tid continue Starlix 120 mg ac tid continue NISS no need for insulin after discharge Subjective Allergies: Coded Allergies: No Known Allergies (Unverified , 02/06/18) All Systems: reviewed and negative except above Subjective events noted Objective Last 24 Hour Vital Signs Date Time Temp Pulse Resp B/P (MAP) Pulse Ox O2 Delivery O2 Flow Rate FiO2 02/10/18 04:00 61 02/10/18 04:00 97.9 65 20 119/68 94 Room Air 97.9 02/10/18 00:00 65 02/10/18 00:00 97.0 61 20 114/70 94 Room Air 97.0 02/09/18 20:00 71 02/09/18 20:00 97.5 71 20 98/63 95 Room Air 97.5 02/09/18 16:00 97.3 68 19 124/75 95 Room Air 97.3 02/09/18 16:00 67 02/09/18 12:00 97.2 67 20 112/70 96 Room Air 97.2 02/09/18 12:00 65 02/09/18 08:00 69 02/09/18 08:00 97.7 71 19 101/62 98 Room Air 97.7 Intake and Output 02/09/18 02/10/18 19:00 07:00 Intake Total 860 ml Balance 860 ml Intake Oral 860 ml # Bowel Movements 1 Height (Feet): 5 Height (Inches): 6.00 Weight (Pounds): 166 General Appearance: no apparent distress Neck: normal alignment Cardiovascular: normal rate Respiratory/Chest: lungs clear Abdomen: normal bowel sounds Objective Current Medications Medications (Trade) Dose Ordered Sig/Namrata Route PRN Reason Start Time Stop Time Status Last Admin Dose Admin Acetaminophen (Tylenol) 650 mg Q4H PRN ORAL FEVER (temp>100.5F) 02/06/18 14:30 03/08/18 14:29 Albuterol/ Ipratropium (Albuterol/ Ipratropium) 3 ml Q4H PRN HHN Shortness of Breath 02/06/18 14:30 02/11/18 14:29 Aspirin (ASA) 81 mg DAILY ORAL 02/07/18 09:00 03/09/18 08:59 02/09/18 08:08 Atorvastatin Calcium (Lipitor) 40 mg BEDTIME ORAL 02/06/18 21:00 03/08/18 20:59 02/09/18 22:17 Clopidogrel Bisulfate (Plavix) 75 mg DAILY ORAL 02/07/18 20:20 03/09/18 20:19 02/09/18 08:08 Dextrose (Dextrose 50%) 25 ml STAT PRN IV Hypoglycemia 02/06/18 14:30 03/08/18 14:29 Dextrose (Dextrose 50%) 50 ml STAT PRN IV Hypoglycemia 02/06/18 15:30 03/08/18 15:29 Diltiazem HCl (Cardizem) 10 mg Q1H PRN IV heart rate more than 120, 02/06/18 14:30 03/08/18 14:29 Enalaprilat (Vasotec) 2.5 mg Q6H PRN IV sbp more than 160 02/06/18 14:30 03/08/18 14:29 Heparin Sodium (Porcine) (Heparin 5000 units/ml) 5,000 units EVERY 8 HOURS SUBQ 02/06/18 22:00 03/08/18 21:59 02/10/18 07:02 Insulin Aspart (NovoLOG) BEFORE MEALS AND HS SUBQ 02/06/18 17:30 03/08/18 17:29 02/10/18 07:01 Ketorolac Tromethamine (Toradol 30mg) 30 mg Q6H PRN IV moderate pain (4-6) 02/06/18 14:30 02/11/18 14:29 Metformin HCl (Glucophage) 500 mg TIAC ORAL 02/08/18 11:30 03/10/18 11:29 02/10/18 06:56 Morphine Sulfate (Morphine Sulfate) 2 mg Q4H PRN IVP severe Pain (Pain Scale 7-10) 02/06/18 14:30 02/13/18 14:29 02/06/18 16:31 Nateglinide (Starlix) 120 mg TIAC ORAL 02/08/18 11:30 03/10/18 11:29 02/10/18 06:56 Nitroglycerin (Ntg) 0.4 mg Q5M PRN SL Prn Chest Pain 02/06/18 14:30 03/08/18 14:29 Ondansetron HCl (Zofran) 4 mg Q6H PRN IVP Nausea & Vomiting 02/06/18 14:30 03/08/18 14:29 Pantoprazole (Protonix) 40 mg DAILY ORAL 02/07/18 09:00 03/09/18 08:59 02/09/18 08:09 Polyethylene Glycol (Miralax) 17 gm DAILYPRN PRN ORAL Constipation 02/06/18 14:30 03/08/18 14:29 Temazepam (Restoril) 15 mg HSPRN PRN ORAL Insomnia 02/06/18 14:30 02/13/18 14:29 Item Value Date Time Bedside Blood Glucose 171 mg/dl H 02/10/18 0701 Bedside Blood Glucose 171 mg/dl H 02/10/18 0630 Bedside Blood Glucose 134 mg/dl H 02/09/18 2219 Bedside Blood Glucose 180 mg/dl H 02/09/18 1630 Bedside Blood Glucose 206 mg/dl H 02/09/18 1130 Bedside Blood Glucose 176 mg/dl H 02/09/18 0636 SHIVAM RIDDLE February 10, 2018 07:06
[2018-02-10 08:00] VITALS: BP 115/75
[2018-02-10] MEDS: Aspirin Baby 81mg ORAL SCH (08:59)
--- NOTE | 2018-02-10 11:48 | General Progress Note ---
Assessment/Plan Status: stable, progressing Assessment/Plan anxiety d/o cognitive d/o/dementia -Ativan prn -the pt is reluctant to ssri Subjective Date patient seen: February 10, 2018 Neurologic/Psychiatric: Reports: anxiety, depressed, emotional problems Allergies: Coded Allergies: No Known Allergies (Unverified , 02/06/18) Subjective The pt was depressed about the outcome. Objective Last 24 Hour Vital Signs Date Time Temp Pulse Resp B/P (MAP) Pulse Ox O2 Delivery O2 Flow Rate FiO2 02/10/18 08:00 97.3 82 19 115/75 96 Room Air 97.3 02/10/18 04:00 61 02/10/18 04:00 97.9 65 20 119/68 94 Room Air 97.9 02/10/18 00:00 65 02/10/18 00:00 97.0 61 20 114/70 94 Room Air 97.0 02/09/18 20:00 71 02/09/18 20:00 97.5 71 20 98/63 95 Room Air 97.5 02/09/18 16:00 97.3 68 19 124/75 95 Room Air 97.3 02/09/18 16:00 67 02/09/18 12:00 97.2 67 20 112/70 96 Room Air 97.2 02/09/18 12:00 65 Intake and Output 02/09/18 02/10/18 19:00 07:00 Intake Total 860 ml Balance 860 ml Intake Oral 860 ml # Bowel Movements 1 Height (Feet): 5 Height (Inches): 6.00 Weight (Pounds): 166 General Appearance: WD/WN, no apparent distress, alert Neurologic: oriented x 3, responsive, depressed affect Luis E Carmona M.D. February 10, 2018 11:48
[2018-02-10 12:00] VITALS: BP 113/72
--- NOTE | 2018-02-10 12:49 | Pulmonology Progress Note ---
Assessment/Plan Problems: (1) Acute CVA (cerebrovascular accident) (2) ACS (acute coronary syndrome) (3) Weakness (4) Elevated troponin (5) Diabetes mellitus (6) Hx of abdominal surgery Assessment/Plan dc to rehab/ Irish speaking pt/ot, participating very good MRI of brain reviewed, All medications and treatment were reviewed. al reviewed Subjective ROS Limited/Unobtainable: No Constitutional: Reports: no symptoms HEENT: Repors: no symptoms Respiratory: Reports: no symptoms Allergies: Coded Allergies: No Known Allergies (Unverified , 02/06/18) Objective Last 24 Hour Vital Signs Date Time Temp Pulse Resp B/P (MAP) Pulse Ox O2 Delivery O2 Flow Rate FiO2 02/10/18 08:00 97.3 82 19 115/75 96 Room Air 97.3 02/10/18 04:00 61 02/10/18 04:00 97.9 65 20 119/68 94 Room Air 97.9 02/10/18 00:00 65 02/10/18 00:00 97.0 61 20 114/70 94 Room Air 97.0 02/09/18 20:00 71 02/09/18 20:00 97.5 71 20 98/63 95 Room Air 97.5 02/09/18 16:00 97.3 68 19 124/75 95 Room Air 97.3 02/09/18 16:00 67 Intake and Output 02/09/18 02/10/18 19:00 07:00 Intake Total 860 ml Balance 860 ml Intake Oral 860 ml # Bowel Movements 1 General Appearance: WD/WN HEENT: normocephalic, atraumatic Respiratory/Chest: chest wall non-tender, lungs clear Cardiovascular: normal peripheral pulses, normal rate Abdomen: normal bowel sounds, soft, non tender Genitourinary: normal external genitalia Skin: no rash Current Medications Medications (Trade) Dose Ordered Sig/Namrata Route PRN Reason Start Time Stop Time Status Last Admin Dose Admin Acetaminophen (Tylenol) 650 mg Q4H PRN ORAL FEVER (temp>100.5F) 02/06/18 14:30 03/08/18 14:29 Albuterol/ Ipratropium (Albuterol/ Ipratropium) 3 ml Q4H PRN HHN Shortness of Breath 02/06/18 14:30 02/11/18 14:29 Aspirin (ASA) 81 mg DAILY ORAL 02/07/18 09:00 03/09/18 08:59 02/10/18 08:59 Atorvastatin Calcium (Lipitor) 40 mg BEDTIME ORAL 02/06/18 21:00 03/08/18 20:59 02/09/18 22:17 Clopidogrel Bisulfate (Plavix) 75 mg DAILY ORAL 02/07/18 20:20 03/09/18 20:19 02/10/18 09:00 Dextrose (Dextrose 50%) 25 ml STAT PRN IV Hypoglycemia 02/06/18 14:30 03/08/18 14:29 Dextrose (Dextrose 50%) 50 ml STAT PRN IV Hypoglycemia 02/06/18 15:30 03/08/18 15:29 Diltiazem HCl (Cardizem) 10 mg Q1H PRN IV heart rate more than 120, 02/06/18 14:30 03/08/18 14:29 Enalaprilat (Vasotec) 2.5 mg Q6H PRN IV sbp more than 160 02/06/18 14:30 03/08/18 14:29 Heparin Sodium (Porcine) (Heparin 5000 units/ml) 5,000 units EVERY 8 HOURS SUBQ 02/06/18 22:00 03/08/18 21:59 02/10/18 07:02 Insulin Aspart (NovoLOG) BEFORE MEALS AND HS SUBQ 02/06/18 17:30 03/08/18 17:29 02/10/18 11:32 Ketorolac Tromethamine (Toradol 30mg) 30 mg Q6H PRN IV moderate pain (4-6) 02/06/18 14:30 02/11/18 14:29 Metformin HCl (Glucophage) 500 mg TIAC ORAL 02/08/18 11:30 03/10/18 11:29 02/10/18 11:35 Morphine Sulfate (Morphine Sulfate) 2 mg Q4H PRN IVP severe Pain (Pain Scale 7-10) 02/06/18 14:30 02/13/18 14:29 02/06/18 16:31 Nateglinide (Starlix) 120 mg TIAC ORAL 02/08/18 11:30 03/10/18 11:29 02/10/18 11:35 Nitroglycerin (Ntg) 0.4 mg Q5M PRN SL Prn Chest Pain 4/30/18 14:30 03/08/18 14:29 Ondansetron HCl (Zofran) 4 mg Q6H PRN IVP Nausea & Vomiting 02/06/18 14:30 03/08/18 14:29 Pantoprazole (Protonix) 40 mg DAILY ORAL 02/07/18 09:00 03/09/18 08:59 02/10/18 08:59 Polyethylene Glycol (Miralax) 17 gm DAILYPRN PRN ORAL Constipation 02/06/18 14:30 03/08/18 14:29 Temazepam (Restoril) 15 mg HSPRN PRN ORAL Insomnia 02/06/18 14:30 02/13/18 14:29 Sean Loera MD February 10, 2018 12:49
--- NOTE | 2018-02-13 10:09 | Diagnostic Imaging Report ---
APPROVED REPORT CPT Code: 56096 Vascular Symptoms Comments: DIZZINESS. Doppler Spectral Velocity Analysis RightLeft RIGHT SIDE: CCA - Imaging reveals no significant plaque within the common carotid arteries. The Doppler spectral flow analysis is within normal limits throughout the extracranial carotid arteries. VERTEBRAL - The vertebral artery is within normal limits. LEFT SIDE: Imaging reveals no significant plaque within the common carotid arteries. Imaging reveals irregular plaque in the bulb and internal carotid arteries. The Doppler spectral flow analysis indicates the degree of stenosis is minimal in the internal carotid arteries (5% - 10%). The vertebral arteries are patent, without evidence of stenosis or steal.
--- NOTE | 2018-02-13 10:12 | Diagnostic Imaging Report ---
APPROVED REPORT CPT Code: 82024 Present Symptoms Comments: BILATERAL LEGS PAIN. BILATERAL: Imaging reveals a patent deep venous system bilaterally. There is no evidence of thrombus within the femoral, popliteal or tibial segments. The greater saphenous veins are also within normal limits. Doppler indicates normal spontaneous flow within these segments.
--- NOTE | 2018-02-13 11:39 | Discharge Summary ---
Discharge Summary Discharge Summary Discharge Summary DATE OF ADMISSION: 02/06/2018 DATE OF DISCHARGE: 02/10/2018 REASON FOR ADMISSION: 67 years old male with a past medical history significant for diabetes, hypertension, presented to emergency department complaining of left leg weakness. Patient reported that about 4:00 in the morning he had a difficulty moving his leg, he also reported feeling of numbness. He reported difficulty with ambulation and bearing weight on the left leg. He denied chest pain, shortness of breath, dizziness, palpitation. Upon evaluation in emergency room vital signs were stable. Troponin was elevated- 0.098. EKG revealed normal sinus rhythm, no acute ischemic changes. Chest x-ray revealed no acute cardiopulmonary pathology. CT of the head revealed no acute intracranial pathology but showed chronic appearing infarcts in the right thalamus and left cerebellar hemisphere. CT of the lumbar spine revealed no acute fracture or traumatic misalignment. No leukocytosis, stable ,hemoglobin and hematocrit, glucose 246. Renal parameters, electrolytes , LFTs all stable. Patient was admitted for elevated troponin, rule out acute coronary syndrome, diabetes mellitus, generalized weakness. CONSULTANTS: can bander operator Dr. Shoemaker neurologist Dr. Restrepo psychiatrist [facility] [employer] [facility]: Patient admitted to monitored floor. Serial troponin and EKG along with echo were ordered ; cardiology evaluation was requested. MRI of the brain was ordered along with neurology evaluation was requested. MRI of the brain revealed acute CVA involving the high right frontal lobe near the vertex. Infarct was small. No associated edema or mass effect or hemorrhage. Old lacunar infarcts in the left cerebellum and right thalamus noted. Carotid duplex was essentially negative. Venous duplex bilateral lower extremities was negative. Lipid panel revealed elevated LDL 111. Crystal Syrup Maker closely followed. Echocardiogram revealed preserved ejection fraction 55-60%, mild left ventricular hypertrophy, no evidence of pericardial effusion. Right ventricular systolic pressure of 29 . Patient had recent nuclear perfusion imaging about 8 months ago, that was negative with a normal ejection fraction. Per can bander operator, cardiac enzyme abnormalities were of minimal degree and uncertain etiology, the levels of the cardiac enzymes were below WHO threshold for acute myocardial infarction, no peak, no william. Telemetry was negative . Echo was stable. Patient was started on aspirin and statin. Per neurologist patient started on Plavix. Neurologist recommended to stop aspirin in 3 days. Blood pressure was closely monitored and managed with goal to keep it equal or below 120/80. Hemoglobin A1c 10.3 was clearly not at goal. X Ray Technician consult was requested. Blood sugar was managed with Starlix, metformin and sliding scale insulin as needed. Supplemental oxygen provided as needed to keep pulse oximetry above 92%. Pulmonary toilet provided. DVT and GI prophylaxis provided. Psychiatrist seen and evaluated the patient, diagnosed patient with the cognitive disorder, anxiety disorder and dementia. Supportive therapy and reality orientation provided , psychiatric medication regimen optimized. Patient was working with physical and occupational therapists. Based on the physical therapy recommendation, patient will need additional rehabilitation at the longterm facility. Patient's family agreed with the plan. Patient subsequently was transferred to longterm facility for further rehabilitation FINAL DIAGNOSES: Acute right frontal CVA Abnormal cardiac enzyme without signs and symptoms of coronary syndrome of questionable significance Diabetes mellitus out of control Cerebrovascular disease with history of old CVA Hypertension Anxiety disorder Cognitive disorder Dementia DISCHARGE MEDICATIONS: See Medication Reconciliation list. DISCHARGE INSTRUCTIONS: Patient was discharged to longterm facility, follow-up with medical doctor at the facility. I have been assigned to dictate discharge summary for this account. I was not involved in the patient's management. Piedad Lema NP ([place]) February 13, 2018 11:39
== END 2018-02-10 12:50 | DRG 66 ==
LOC: EDBD 11:33 → EMR 12:50 → EDBEDREQ 13:07 → EDBEDREQSVC 13:07 → EDBEDREQ 13:17 → 2E 13:55 → EDBEDREQ 14:07 → 2E 02-08 22:34
DX: I63.8 Other cerebral infarction (principal); R74.8 Abnormal levels of other serum enzymes; E11.65 Type 2 diabetes mellitus with hyperglycemia; Z86.73 Personal history of transient ischemic attack (TIA), and cerebral infarction without residual deficits; I10 Essential (primary) hypertension; F41.9 Anxiety disorder, unspecified; F03.90 Unspecified dementia, unspecified severity, without behavioral disturbance, psychotic disturbance, mood disturbance, and anxiety; E11.42 Type 2 diabetes mellitus with diabetic polyneuropathy; K21.9 Gastro-esophageal reflux disease without esophagitis; Z79.4 Long term (current) use of insulin; Z87.891 Personal history of nicotine dependence
CPT/HCPCS: 36415; 70450; 70551; 71045; 72131; 74230; 80053; 80061; 82306; 82550; 82553; 82607; 82746; 82962; 83036; 84443; 84484; 85025; 85610; 85651; 85730; 86140; 86592; 93005; 93306; 93880; 93970; 99285; J1815